=== PATIENT | male | born 1975 | race Caucasian/White ===

== ENCOUNTER → 2022-01-13 00:15 | Outpatient (CLI) | payer MEDICAID, SELFPAY ==
--- NOTE | 2022-01-13 | DI.US_ITS ---
Exam(s) US ABDOMEN EXAM: US ABDOMEN CLINICAL HISTORY: ELEVATED LIVER ENZYMES, R74.8, ELEVATED IRON, ? HEMOCHROMATOSIS TECHNIQUE: Ultrasound abdomen performed using standard protocol. COMPARISON: No exams were available for comparison FINDINGS: LIVER: Normal size and echogenicity. No focal liver lesions are seen.. GALLBLADDER: No evidence of cholelithiasis. No evidence of wall thickening. No pericholecystic fluid identified. ACUÑA'S SIGN: Negative. BILIARY SYSTEM: No intrahepatic or extrahepatic biliary ductal dilation. KIDNEYS: Kidneys are symmetric in size. No evidence of renal calculi. No evidence of hydronephrosis. No renal mass or cyst identified. PANCREAS: Not well visualized. SPLEEN: Not enlarged. ABDOMINAL AORTA AND IVC: Visualized portions normal caliber. ASCITES: None seen. IMPRESSION: Normal sonographic appearance of the upper abdomen. DATA REPOSITORY:
--- NOTE | 2022-01-13 | DI.RAD_ITS ---
Exam(s) XR CHEST 2V PA LATERAL EXAM: XR CHEST 2V PA LATERAL CLINICAL HISTORY: BRONCHOSPASM, J98.01, COUGH, R05, FATIGUE, R53.83 TECHNIQUE: 2D digital imaging was performed. COMPARISON: No exams were available for comparison FINDINGS: MEDIASTINUM: Normal. HEART: Normal. PULMONARY VASCULATURE: Normal. LUNGS: Clear. PLEURAL SPACE: No pleural effusion or pneumothorax. BONE:Unremarkable for age. IMPRESSION: No acute abnormality. DATA REPOSITORY: RADIATION DOSE DELIVERED:
== END ==
PROVIDERS: PCP Internal Medicine; Visit Provider Nurse Practitioner Family
DX: R05.8 Other specified cough (principal); R53.83 Other fatigue; J98.01 Acute bronchospasm; R74.8 Abnormal levels of other serum enzymes
CPT/HCPCS: 71046; 76700

== ENCOUNTER 2024-10-12 14:07 | Outpatient (CLI) | payer MEDICAID, SELFPAY ==
[2024-10-12 14:14] LABS: Abs Immature Grans 0.01 10^3/uL (0.0-0.06); Absolute Basophil Count 0.03 10^3/uL (0.0-0.2); Absolute Eosinophil Count 0.02 10^3/uL (0.0-0.7); Absolute Lymphocyte Count 1.17 10^3/uL (1.2-3.4); Absolute Monocyte Count 0.45 10^3/uL (0.1-0.8); Absolute Neutrophil Count 3.03 10^3/uL (1.2-6.7); Basophils % 0.6 %; Eosinophils % 0.4 %; HCT 46.6 % (40.0-50.0); HGB 15.9 g/dL (13.5-17.5); Immature Grans % 0.2 %; Lymphocytes % 24.8 %; MCH 30.2 pg (27.0-33.0); MCHC 34.1 % (32.0-36.0); MCV 88 fL (80-95); MPV 10.1 fL (8.0-11.0); Monocytes % 9.6 %; Neutrophils % 64.4 %; Platelet Count 151 10^3/uL (130-400); RBC 5.27 10^6/uL (4.36-5.78); RDW 12.8 % (11.8-14.1); RDW-SD 41.3 fL; WBC 4.71 10^3/uL (4.4-10.8)
--- OUTSIDE RECORDS SUMMARY | 2024-10-12 14:15 | XMS_ITS | Referral Summary ---
Author Organization [facility] Address [address] [place] [address] Care Team Providers Care Transverse Abdominal Muscle Nurse Name Role Phone Tex Crowder MD Primary Care Provider + Social History Tobacco Use Types Packs/Day Years Used Date Smoking Tobacco: Never Assessed Sex and Gender Information Value Date Recorded Sex Assigned at Not on file Legal Sex Male 18:28 EST Gender Identity Not on file Sexual Orientation Not on file Plan of Treatment Not on file Procedures Procedure Name Priority Date/Time Associated Diagnosis Comments HEPATITIS C AB W REFLEX TO HCV RNA BY PCR Routine 05/07/2022 6:32 EDT Nonspecific abnormal serum enzyme levels from Last 3 Months or Most Recently Relevant to Health Maintenance Results * HEPATITIS C AB W REFLEX TO HCV RNA BY PCR (05/07/2022 6:32 EDT) Hep C Antibody Negative Negative 05/07/2022 14:33 EDT [facility] Blood VENOUS BLOOD / Unknown Venipuncture / Unknown 05/07/2022 6:32 EDT 05/07/2022 13:06 EDT us Ale Bazan NP CHEMISTRY & BLOOD GAS ORDERABLES Final Result [facility] [address] [place] [address] from Last 3 Months or Most Recently Relevant to Health Maintenance Insurance MEDICAID [place] Care Teams Transverse Abdominal Muscle Nurse Relationship Specialty Start Date End Date Tex Crowder MD [address] [place] [phone] PCP - General 07/16/15
--- OUTSIDE RECORDS SUMMARY | 2024-10-12 14:15 | XMS_ITS | Encounter Summary ---
Author Organization [facility] Address [address] [place] [address] Care Team Providers Care Conservation Worker Name Role Phone Tex Crowder MD Primary Care Provider + Encounter Details Date Type Department Care Team (Late st Contact Info) Description 12/14/2021 Results Only [facility] Laboratory Services - [facility] [address] [place] [address] Ale Bazan, DYLAN [address] [place] [address] Social History Tobacco Use Types Packs/Day Years Used Date Smoking Tobacco: Never Assessed Sex and Gender Information Value Date Recorded Sex Assigned at Not on file Legal Sex Male 18:28 EST Gender Identity Not on file Sexual Orientation Not on file documented as of this encounter Plan of Treatment Not on file documented as of this encounter Procedures Procedure Name Priority Date/Time Associated Diagnosis Comments TSH Routine 12/14/2021 6:26 EDT documented in this encounter Results * TSH (12/14/2021 6:26 EDT) TSH 1.15 0.45 - 5.33 uIU/mL [facility] 12/14/2021 6:26 EDT us Ale Bazan NP CHEMISTRY & BLOOD GAS ORDERABLES Final Result [facility] [address] [place] [address] documented in this encounter Visit Diagnoses Not on filedocumented in this encounter Care Teams Conservation Worker Relationship Specialty Start Date End Date Tex Crowder MD [address] [place] [phone] PCP - General 07/16/15 documented as of this encounter
--- OUTSIDE RECORDS SUMMARY | 2024-10-12 14:15 | XMS_ITS | Clinical Summary ---
Author Organization [facility] Address [address] [place] [address] Care Team Providers Care Strapper Name Role Phone Tex Crowder MD Primary Care Provider + Social History Tobacco Use Types Packs/Day Years Used Date Smoking Tobacco: Never Assessed Sex and Gender Information Value Date Recorded Sex Assigned at Not on file Legal Sex Male 18:28 EST Gender Identity Not on file Sexual Orientation Not on file Plan of Treatment Health Maintenance Due Date Last Done Comments Hepatitis B Vaccine (1 of 3 - 19+ 3-dose series) 06/17 COVID-19 Vaccine ( season) 2024 Hepatitis C Screen Completed 05/07/2022 Procedures Procedure Name Priority Date/Time Associated Diagnosis Comments HEPATITIS C AB W REFLEX TO HCV RNA BY PCR Routine 05/07/2022 6:32 EDT Nonspecific abnormal serum enzyme levels from Last 3 Months or Most Recently Relevant to Health Maintenance Results * HEPATITIS C AB W REFLEX TO HCV RNA BY PCR (05/07/2022 6:32 EDT) Hep C Antibody Negative Negative 05/07/2022 14:33 EDT [facility] Blood VENOUS BLOOD / Unknown Venipuncture / Unknown 05/07/2022 6:32 EDT 05/07/2022 13:06 EDT us Ale Bazan NP CHEMISTRY & BLOOD GAS ORDERABLES Final Result [facility] [address] [place] [address] from Last 3 Months or Most Recently Relevant to Health Maintenance Insurance MEDICAID [place] Care Teams Strapper Relationship Specialty Start Date End Date Tex Crowder MD [address] [place] [phone] PCP - General 07/16/15
--- OUTSIDE RECORDS SUMMARY | 2024-10-12 14:15 | XMS_ITS | Encounter Summary ---
Author Organization [facility] Address [address] [place] [address] Care Team Providers Care Rib Sawyer Name Role Phone Txe Crowder MD Primary Care Provider + Encounter Details Date Type Department Care Team (Late st Contact Info) Description 04/18/2024 Results Only [facility] Laboratory Services - [facility] [address] [place] [address] Ale Bazan, INTELLIGENCE RESEARCH SPECIALIST [address] [place], [place] [address] Social History Tobacco Use Types Packs/Day Years [...] Procedure Name Priority Date/Time Associated Diagnosis Comments COMPLETE BLOOD COUNT WITH DIFFERENTIAL (AUTO) Routine 04/18/2024 14:27 EDT documented in this encounter Results * (ABNORMAL) COMPLETE BLOOD COUNT WITH DIFFERENTIAL (AUTO) (04/18/2024 14:27 EDT) WBC 3.5(L) 4.0 - 10.4 x10e3/uL [facility] Lymphocytes 26.3 % [facility] Monocytes 10.6 % [facility] Lymph # 0.92(L) 1.09 - 3.30 x10e3/uL [facility] Platte # 0.37 0.10 - 0.80 x10e3/uL [facility] RBC 5.91(H) 4.36 - 5.78 x10e6/uL [facility] HGB 16.3 13.8 - 17.3 g/dL [facility] HCT 50.3(H) 39.5 - 50.2 % [facility] MCV 85.1 81.0 - 95.[address] [facility] MCH 27.6 27.6 - 33.[address] [facility] MCHC 32.4(L) 32.8 - 36.4 g/dL [facility] RDW 15.5(H) <14.2 % [facility] PLT 216 141 - 377 x10e3/uL [facility] MPV 11.4 9.5 - 12.[address] [facility] Absolute Neutrophil 2.14(L) 2.20 - 8.85 x10e3/uL [facility] Neutrophils 61.1 % [facility] Eosinophils 0.6 % [facility] Eosinophils Absolute 0.02(L) 0.03 - 0.61 x10e3/uL [facility] Basophils 1.1 % [facility] Basophils Absolute 0.04 0.01 - 0.11 x10e3/uL [facility] Immature Granulocytes 0.3 % [facility] Immature Granulocytes Absolute 0.01 0.00 - 0.06 x10e3/uL [facility] RDW-SD 47.8(H) <46.[address] [facility] 04/18/2024 14:2 7 EDT us Ale Bazan INTELLIGENCE RESEARCH SPECIALIST HEMATOLOGY & PF4 ORDERABLES Aleida carney Result [facility] [address] [place] [address] documented in this encounter Visit Diagnoses Not on filedocumented in this encounter Care Teams Rib Sawyer Relationship Specialty Start Date End Date Tex Crowder MD [address] [place] [phone] PCP - General 07/16/15 documented as of this encounter
--- OUTSIDE RECORDS SUMMARY | 2024-10-12 14:15 | XMS_ITS | Encounter Summary ---
Author Organization [facility] Address [address] [place] [address] Care Team Providers Care Manager Multicultural Name Role Phone Tex Crowder MD Primary Care Provider + Encounter Details Date Type Department Care Team (Latest Contact Info) Description 04/18/2024 Community Orders [facility] [address] [place] [address] Ale Bazan NP [address] [place] [address] Polycythemia, secondary (Primary Dx); Hyperlipidemia, unspecified hyperlipidemia type; Reduced libido; Special screening, prostate cancer; Vitamin D deficiency disease Social History Tobacco Use Types Packs/Day Years Used Date Smoking Tobacco: Never Assessed Sex and Gender Information Value Date Recorded Sex Assigned at Not on file Legal Sex Male 18:28 EST Gender Identity Not on file Sexual Orientation Not on file documented as of this encounter Plan of Treatment Not on file documented as of this encounter Results * (ABNORMAL) VITAMIN D (25,OH) (04/18/2024 8:50 EDT) 25OH Vitamin D Tot 27(L) 30 - 100 ng/mL 04/18/2024 13:52 EDT [facility] Blood VENOUS BLOOD / Unknown Venipuncture / Unknown 04/18/2024 8:50 EDT 04/18/2024 13:06 EDT Ale Bazan NP CHEMISTRY & BLOOD GAS ORDERABLES Final Result [facility] [address] [place] [address] * PSA SCREEN (04/18/2024 8:50 EDT) PSA 0.908 <=2.500 ng/mL 04/18/2024 14:06 EDT [facility] Blood VENOUS BLOOD / Unknown Venipuncture / Unknown 04/18/2024 8:50 EDT 04/18/2024 13:06 EDT Narrative [facility] - 04/18/2024 14:06 EDT NOTE: Serum PSA concentration should not be interpreted as absolute evidence for the presence or absence of malignant disease. Assayed on [employer] using chemiluminescent technology.??Values obtained by using different assay methods cannot be used interchangeably. ?? Ale Bazan NP CHEMISTRY & BLOOD GAS ORDERABLES Final Result Performing Organization Address [facility] de Phone Number [facility] [address] [place] [address] * (ABNORMAL) TESTOSTERONE, TOTAL AND FREE (04/18/2024 8:50 EDT) Testosterone 194(L) 229 - 902 ng/dL 04/18/2024 20:30 EDT [facility] Comment:The results of this assay can be falsely elevated due to the consumption of Biotin. Sex Hormone Bnd Glob 9.4(L) 11.5 - 54.5 nmol/L 04/18/2024 20:30 EDT [facility] Comment:The results of this assay can be falsely lowered due to the consumption of Biotin. Free Testosterone 6.3 4.0 - 14.5 ng/dL 04/18/2024 20:30 EDT [facility] Blood VENOUS BLOOD / Unknown Venipuncture / Unknown 04/18/2024 8:50 EDT 04/18/2024 13:06 EDT Narrative [facility] - 04/18/2024 20:30 EDT This test is not recommended in patients with plasma protein abnormalities. us Ale Bazan NP CHEMISTRY & BLOOD GAS ORDERABLES Final Result [facility] [address] [place], [place] [id number] * (ABNORMAL) LIPID PROFILE (INCLUDES CHOLESTEROL, TRIGLYCERIDES, HDL, LDL) (04/18/2024 8:50 EDT) Cholesterol 216(H) <200 mg/dL 04/18/2024 13:31 [facility] Comment:Note that therapeuti c goals will differ between patients based on cardiac risk factors and current medical therapy. HDL 33(L) >=40 mg/dl 04/18/2024 13:31 [facility] Comment:Note that therapeuti c goals will differ between patients based on cardiac risk factors and current medical therapy. LDL, Calculated 160(H) <160 mg/dL 13:31 [facility] Comment:Note that therapeuti c goals will differ between patients based on cardiac risk factors and current medical therapy. Triglyceride 113 <=150 mg/dL 04/18/2024 13:31 [facility] Comment:Note that therapeuti c goals will differ between patients based on cardiac risk factors and current medical therapy. Chol/HDL Ratio 6.5 See Note 04/18/2024 13:31 [facility] Comment: NOTE: Desirable Ratio = <4.1 Patient At Risk Ratio = >5.0(Males) ?>6.0(Females) Non HDL Cholesterol 183(H) <160 mg/dL 04/18/2024 13:31 [facility] Comment:Note that therapeuti c goals will differ between patients based on cardiac risk factors and current medical therapy. Blood VENOUS BLOOD / Unknown Venipuncture / Unknown 04/18/2024 8:50 EDT 04/18/2024 13:06 EDT us Ale B Bazan LEATHER TOOLER CHEMISTRY & BLOOD GAS ORDERABLES Final Result [facility] [address] [place] [address] * (ABNORMAL) COMPREHENSIVE METABOLIC PANEL (CMP) (04/18/2024 8:50 EDT) Sodium 137 136 - 145 mmol/L 04/18/2024 13:31 [facility] Potassium 5.0 3.5 - 5.0 mmol/L 04/18/2024 13:31 [facility] Chloride 102 96 - 110 mmol/L 04/18/2024 13:31 [facility] CO2 Total 25 22 - 32 mmol/L 04/18/2024 13:31 [facility] Glucose 86 70 - 99 mg/dl 04/18/2024 13:31 [facility] BUN 14 10 - 26 mg/dL 04/18/2024 13:31 [facility] Creatinine 1.02 0.66 - 1.25 mg/dL 04/18/2024 13:31 [facility] eGFR 91 >60 mL/min/1.7 3m2 04/18/2024 13:31 [facility] Total Protein 7.3 6.3 - 8.2 g/dL 04/18/2024 13:31 [facility] Albumin 4.5 3.4 - 4.9 g/dL 04/18/2024 13:31 [facility] Alkaline Phosphatase 39 38 - 126 U/L 04/18/2024 13:31 [facility] AST 90(H) 15 - 46 U/L 04/18/2024 13:31 [facility] ALT 113(H) <50 U/L 04/18/2024 13:31 [facility] Bilirubin, Total 1.1 <1.4 mg/dL 04/18/20 13:31 [facility] Calcium 9.0 8.5 - 10.5 mg/dL 04/18/2024 13:31 EDT [facility] Albumin/Globulin Ratio 1.6 1.0 - 2.5 04/18/2024 13:31 EDT [facility] Anion Gap 10 5 - 14 mmol/L 04/18/2024 13:31 EDT [facility] Blood VENOUS BLOOD / Unknown Venipuncture / Unknown 04/18/2024 8:50 EDT 04/18/2024 13:06 EDT us Ale Bazan LEATHER TOOLER CHEMISTRY & BLOOD GAS ORDERABLES Final Result Performing Organization Address [facility]/ZIP Co de Phone Number [facility] [address] [place] [address] * (ABNORMAL) IBC (04/18/2024 8:50 EDT) Iron Binding Capacity 488(H) 240 - 450 ??g/dL 04/18/2024 13:40 EDT [facility] Blood VENOUS BLOOD / Unknown Venipuncture / Unknown 04/18/2024 8:50 EDT 04/18/2024 13:06 EDT us Ale Bazan LEATHER TOOLER CHEMISTRY & BLOOD GAS ORDERABLES Final Result Performing Organization Address [facility] Co de Phone Number [facility] [address] [place] [address] * (ABNORMAL) FERRITIN (04/18/2024 8:50 EDT) Ferritin 10(L) 18 - 464 ng/mL 04/18/2024 14:10 EDT [facility] Blood VENOUS BLOOD / Unknown Venipuncture / Unknown 04/18/2024 8:50 EDT 04/18/2024 13:06 EDT Narrative [facility] - 04/18/2024 14:10 EDT The results of this assay can be falsely lowered due to the consumption of Biotin. us Ale Bazan LEATHER TOOLER CHEMISTRY & BLOOD GAS ORDERABLES Final Result Performing Organization Address [facility]/ZIP Co de Phone Number [facility] [address] [place], [place] [id number] * IRON (04/18/2024 8:50 EDT) Iron 86 49 - 181 ??g/dL 04/18/2024 13:31 EDT [facility] Blood VENOUS BLOOD / Unknown Venipuncture / Unknown 04/18/2024 8:50 EDT 04/18/2024 13:06 EDT us Ale Bazan LEATHER TOOLER CHEMISTRY & BLOOD GAS ORDERABLES Final Result Performing Organization Address [facility] Co de Phone Number [facility] [address] [place] [phone] documented in this encounter Visit Diagnoses Diagnosis Polycythemia, secondary- Primary Hyperlipidemia, unspecified hyperlipidemia type Reduced libido Decreased libido Special screening, prostate cancer Special screening for malignant neoplasm of prostate Vitamin D deficiency disease Unspecified vitamin D deficiency documented in this encounter Care Teams Manager Multicultural Relationship Specialty Start Date End Date Tex Crowder MD [address] [place] [phone] PCP - General 07/16/15 documented as of this encounter
--- OUTSIDE RECORDS SUMMARY | 2024-10-12 14:15 | XMS_ITS | Encounter Summary ---
Author Organization [facility] Address [address] [place] [address] Care Team Providers Care Scrum Project Manager Name Role Phone Tex Crowder MD Primary Care Provider + Encounter Details Date Type Department Care Team (Latest Contact Info) Description 12/14/2021 [facility] [address] [place] [address] Ale Bazan, MEDICAL TRANSCRIPTIONIST [address] [place] [address] High transaminase levels (Primary Dx) Social History Tobacco Use Types Packs/Day Years [...] Name Priority Date/Time Associated Diagnosis Comments HEPATITIS B CORE ANTIBODY (TOTAL) Routine 12/11/2021 13:38 EDT High transaminase levels T3 FREE Routine 12/11/2021 13:38 EDT High transaminase levels T4 FREE Routine 12/11/2021 13:38 EDT High transaminase levels HEPATITIS A ANTIBODY IGM Routine 12/11/2021 High transaminase levels HEPATITIS B SURFACE ANTIBODY Routine 12/11/2021 High transaminase levels HEPATITIS B SURFACE ANTIGEN Routine 12/11/2021 High transaminase levels documented in this encounter Results * T4 FREE (12/11/2021 13:38 EDT) Pathologist [facility] T4, Free 1.4 0.8 - 2.2 ng/dL 12/14/2021 9:28 EDT [facility] Blood VENOUS BLOOD / Unknown Venipuncture / Unknown 12/11/2021 13:38 EDT 12/14/2021 9:03 EDT us Ale Bazan MEDICAL TRANSCRIPTIONIST CHEMISTRY & BLOOD GAS ORDERABLES Final Result [facility] [address] [place] [id number] * T3 FREE (12/11/2021 13:38 EDT) Pathologist [facility] T3, Free 4.4 2.8 - 5.3 pg/mL 12/14/2021 20:58 EDT [facility] Blood VENOUS BLOOD / Unknown Venipuncture / Unknown 12/11/2021 13:38 EDT 12/14/2021 6:32 EDT us Ale Bazan MEDICAL TRANSCRIPTIONIST CHEMISTRY & BLOOD GAS ORDERABLES Final Result [facility] [address] [place] [phone] * HEPATITIS B CORE ANTIBODY (TOTAL) (12/11/2021 13:38 EDT) [facility] Hepatitis B Core Ab, Total Negative Negative 12/15/2021 10:24 EDT [facility] Blood VENOUS BLOOD / Unknown Venipuncture / Unknown 12/11/2021 13:38 EDT 12/14/2021 6:32 EDT us Ale Bazan MEDICAL TRANSCRIPTIONIST CHEMISTRY & BLOOD GAS ORDERABLES Final Result [facility] [address] [place] [address] * HEPATITIS B SURFACE ANTIGEN (12/11/2021) [facility] Hep B Surface Ag Negative Negative 12/15/19 8:58 EDT [facility] Comment: Expected values: Negative The results of this assay can be falsely lowered due to the consumption of Biotin. Blood VENOUS BLOOD / Unknown Venipuncture / Unknown 12/11/2021 12/14/2021 6:32 EDT Ale Bazan MEDICAL TRANSCRIPTIONIST CHEMISTRY & BLOOD GAS ORDERABLES Final Result Performing Organization Address [facility] Co de Phone Number [facility] [address] [place] [address] * HEPATITIS B SURFACE ANTIBODY (12/11/2021) [facility] Hep B Surface Ab, Quantitative 31.9 See Note mIU/mL 12/14/2021 8:58 EDT [facility] Comment: Clinical Interpretation of Immune Status: Anti-HBs detected at >10 mIU/mL. Patient is considered to be immune to infection with HBV. It has not been determined what the clinical significance is for values greater than or = 12 mIU/mL, other than the individual is considered to be immune to HBV infection. The results of this assay can be falsely lowered due to the consumption of Biotin. Reference Range for Hep B Surface Ab, Quant: Positive: ?>= 12.00 mIU/mL Negative: ?< 5.00 mIU/mL Indeterminate: ??>= 5.00 mIU/mL and < 12.00 mIU/mL Blood VENOUS BLOOD / Unknown Venipuncture / Unknown 12/11/2021 12/14/2021 6:32 EDT us Ale Bazan MEDICAL TRANSCRIPTIONIST CHEMISTRY & BLOOD GAS ORDERABLES Final Result Performing Organization Address [facility] de Phone Number [facility] [address] [place] [address] * HEPATITIS A ANTIBODY IGM (12/11/2021) [facility] Hepatitis A Antibody, IgM Negative Negative 12/14/2021 9:56 EDT [facility] Blood VENOUS BLOOD / Unknown Venipuncture / Unknown 12/11/2021 12/14/2021 6:32 EDT us Ale Bazan MEDICAL TRANSCRIPTIONIST CHEMISTRY & BLOOD GAS ORDERABLES Final Result [facility] [address] [place] [address] documented in this encounter Visit Diagnoses Diagnosis High transaminase levels- Primary documented in this encounter Care Teams Scrum Project Manager Relationship Specialty Start Date End Date Tex Crowder MD [address] [place] [phone] PCP - General 07/16/15 documented as of this encounter
--- OUTSIDE RECORDS SUMMARY | 2024-10-12 14:15 | XMS_ITS | Encounter Summary ---
Author Organization [facility] Address [address] [place] [address] Care Team Providers Care Fire Official Name Role Phone Tex Crowder MD Primary Care Provider + Encounter Details Date Type Department Care Team (Late st Contact Info) Description 12/17/2022 Results Only [facility] - [facility] [address] [place] [address] Ale Bazan, DYLAN [address] [place] [address] Social History Tobacco Use Types [...] Procedure Name Priority Date/Time Associated Diagnosis Comments GROUP A STREP BY PCR Routine 12/17/2022 10:00 EDT documented in this encounter Results * GROUP A STREP BY PCR (12/17/2022 10:00 EDT) Group A Strep PCR NOT DETECTED NOT DETECTED [facility] 12/17/2022 10:0 0 EDT us Ale Bazan NP MICROBIOLOGY - GENERAL ORDERABLE S Final Result [facility] [address] [place] [address] documented in this encounter Visit Diagnoses Not on filedocumented in this encounter Care Teams Fire Official Relationship Specialty Start Date End Date Tex Crowder MD [address] [place] [phone] PCP - General 07/16/15 documented as of this encounter
--- OUTSIDE RECORDS SUMMARY | 2024-10-12 14:15 | XMS_ITS | Encounter Summary ---
Author Organization [facility] Address [address] [place] [address] Care Team Providers Care Photographic Reproduction Technician Name Role Phone Tex Crowder MD Primary Care Provider + Encounter Details Date Type Department Care Team (Latest Contact Info) Description 05/07/2022 [facility] [address] [place] [address] Ale Bazan, SHOT PACKER [address] [place] [address] Gastroesophageal reflux disease with esophagitis, unspecified whether hemorrhage (Primary Dx); Nonspecific abnormal serum enzyme levels; Hyperlipidemia, unspecified hyperlipidemia type Social History Tobacco Use Types Packs/Day Years [...] 6:32 EDT Nonspecific abnormal serum enzyme levels HEPATITIS A ANTIBODY IGM Routine 05/07/2022 6:32 EDT Nonspecific abnormal serum enzyme levels COMPLETE BLOOD COUNT AND DIFFERENTIAL Routine 05/07/2022 6:32 EDT Gastroesophageal reflux disease with esophagitis, unspecified whether hemorrhage IRON Routine 05/07/2022 6:32 EDT Nonspecific abnormal serum enzyme levels GGT Routine 05/07/2022 6:32 EDT Nonspecific abnormal serum enzyme levels LIPID PROFILE (INCLUDES CHOLESTEROL, TRIGLYCERIDES, HDL, LDL) Routine 05/07/2022 6:32 EDT Nonspecific abnormal serum enzyme levels Hyperlipidemia, unspecified hyperlipidemia type COMPREHENSIVE METABOLIC PANEL (CMP) Routine 05/07/2022 6:32 EDT Nonspecific abnormal serum enzyme levels documented in this encounter Results * (ABNORMAL) COMPREHENSIVE METABOLIC PANEL (CMP) (05/07/2022 6:32 EDT) Sodium 140 136 - 145 mmol/L 05/07/2022 13:41 [facility] Potassium 4.2 3.5 - 5.0 mmol/L 05/07/2022 13:41 [facility] Chloride 103 96 - 110 mmol/L 05/07/2022 13:41 [facility] CO2 Total 28 22 - 32 mmol/L 05/07/2022 13:41 [facility] Glucose 81 70 - 100 mg/dL 05/07/2022 13:41 [facility] BUN 17 10 - 26 mg/dL 05/07/2022 13:41 [facility] Creatinine 1.10 0.66 - 1.25 mg/dL 05/07/2022 13:41 [facility] eGFR 84 >60 mL/min/1.7 3m2 05/07/2022 13:41 [facility] Total Protein 6.7 6.3 - 8.2 g/dL 05/07/2022 13:41 [facility] Albumin 4.3 3.4 - 4.9 g/dL 05/07/2022 13:41 [facility] Alkaline Phosphatase 54 38 - 126 U/L 05/07/2022 13:41 [facility] AST 47(H) 15 - 46 U/L 05/07/2022 13:41 [facility] ALT 53(H) <50 U/L 05/07/2022 13:41 EDT [facility] Bilirubin, Total 1.4(H) <1.4 mg/dL 05/07/20 13:41 EDT [facility] Calcium 8.8 8.5 - 10.5 mg/dL 05/07/2022 13:41 EDT [facility] Albumin/Globulin Ratio 1.8 1.0 - 2.5 05/07/2022 13:41 EDT [facility] Anion Gap 9 5 - 14 05/07/2022 13:41 EDT [facility] Blood VENOUS BLOOD / Unknown Venipuncture / Unknown 05/07/2022 6:32 EDT 05/07/2022 13:06 EDT us Ale Bazan SHOT PACKER CHEMISTRY & BLOOD GAS ORDERABLES Final Result Performing Organization Address [facility] Co de Phone Number [facility] [address] [place] [address] * HEPATITIS A ANTIBODY IGM (05/07/2022 6:32 EDT) Hepatitis A Antibody, IgM Negative Negative 05/07/2022 14:33 EDT [facility] Blood VENOUS BLOOD / Unknown Venipuncture / Unknown 05/07/2022 6:32 EDT 05/07/2022 13:06 EDT us Ale Bazan SHOT PACKER CHEMISTRY & BLOOD GAS ORDERABLES Final Result Performing Organization Address City/[facility]/ZIP Co de Phone Number [facility] [address] [place] [address] * GGT (05/07/2022 6:32 EDT) GGT 32 15 - 73 U/L 05/07/2022 13:41 EDT [facility] Blood VENOUS BLOOD / Unknown Venipuncture / Unknown 05/07/2022 6:32 EDT 05/07/2022 13:06 EDT us Ale Bazan SHOT PACKER CHEMISTRY & BLOOD GAS ORDERABLES Final Result Performing Organization Address City/[facility]/ZIP Co de Phone Number [facility] [address] [place] [address] * HEPATITIS C AB W REFLEX TO HCV RNA BY PCR (05/07/2022 6:32 EDT) Pathologist [facility] Hep C Antibody Negative Negative 05/07/2022 14:33 EDT [facility] Blood VENOUS BLOOD / Unknown Venipuncture / Unknown 05/07/2022 6:32 EDT 05/07/2022 13:06 EDT us Ale Bazan SHOT PACKER CHEMISTRY & BLOOD GAS ORDERABLES Final Result Performing Organization Address [facility] Co de Phone Number [facility] [address] [place] [address] * (ABNORMAL) LIPID PROFILE (INCLUDES CHOLESTEROL, TRIGLYCERIDES, HDL, LDL) (05/07/2022 6:32 EDT) Pathologist [facility] Cholesterol 235(H) <200 mg/dL 05/07/2022 13:41 [facility] Comment:Note that therapeuti c goals will differ between patients based on cardiac risk factors and current medical therapy. HDL 40 >=40 mg/dL 05/07/2022 13:41 [facility] Comment:Note that therapeuti c goals will differ between patients based on cardiac risk factors and current medical therapy. LDL, Calculated 169(H) <160 mg/dL 13:41 [facility] Comment:Note that therapeuti c goals will differ between patients based on cardiac risk factors and current medical therapy. Triglyceride 129 <=150 mg/dL 05/07/2022 13:41 [facility] Comment:Note that therapeuti c goals will differ between patients based on cardiac risk factors and current medical therapy. Chol/HDL Ratio 5.9 See Note 05/07/2022 13:41 [facility] Comment: NOTE: Desirable Ratio = <4.1 Patient At Risk Ratio = >5.0(Males) ?>6.0(Females) Non HDL Cholesterol 195(H) <160 mg/dL 05/07/2022 13:41 EDT [facility] Comment:Note that therapeuti c goals will differ between patients based on cardiac risk factors and current medical therapy. Blood VENOUS BLOOD / Unknown Venipuncture / Unknown 05/07/2022 6:32 EDT 05/07/2022 13:06 EDT us Ale Bazan SHOT PACKER CHEMISTRY & BLOOD GAS ORDERABLES Final Result Performing Organization Address [facility] Co de Phone Number [facility] [address] [place] [address] * (ABNORMAL) IRON (05/07/2022 6:32 EDT) Pathologist [facility] Iron 276(H) 49 - 181 ??g/dL 05/07/2022 13:41 EDT [facility] Blood VENOUS BLOOD / Unknown Venipuncture / Unknown 05/07/2022 6:32 EDT 05/07/2022 13:06 EDT us Ale Bazan SHOT PACKER CHEMISTRY & BLOOD GAS ORDERABLES Final Result Performing Organization Address [facility] de Phone Number [facility] [address] [place] [address] * (ABNORMAL) COMPLETE BLOOD COUNT AND DIFFERENTIAL (05/07/2022 6:32 EDT) Pathologist [facility] WBC 3.66(L) 4.00 - 10.40 K/cmm 05/07/2022 13:32 EDT [facility] RBC 5.35 4.36 - 5.78 M/cmm 05/07/2022 13:32 [facility] Hemoglobin 16.4 13.8 - 17.3 gm/dL 05/07/2022 13:32 [facility] HCT 48.8 39.5 - 50.2 % 05/07/2022 13:32 [facility] MCV 91 81 - 95 fl 05/07/2022 13:32 [facility] MCH 30.7 27.6 - 33.0 pg 05/07/2022 13:32 [facility] MCHC 33.6 32.8 - 36.4 gm/dL 05/07/2022 13:32 [facility] RDW-CV 12.8 <14.2 % 05/07/2022 13:32 [facility] RDW-SD 42.1 <46.0 fl 05/07/2022 13:32 [facility] PLT 178 141 - 377 K/cmm 05/07/2022 13:32 [facility] MPV 11.2 9.5 - 12.7 fl 05/07/2022 13:32 [facility] % Neutrophils 53.3 % 05/07/2022 13:32 [facility] % Lymphocytes 31.7 % 05/07/2022 13:32 [facility] % Monocytes 13.4 % 05/07/2022 13:32 [facility] % Eosinophils 0.8 % 05/07/2022 13:32 [facility] % Basophils 0.8 % 05/07/2022 13:32 [facility] % Immature Grans 0.0 % 05/07/20 13:32 [facility] Absolute Neutrophils 1.95(L) 2.20 - 8.85 K/cmm 05/07/2022 13:32 [facility] Absolute Lymphocytes 1.16 1.09 - 3.30 K/cmm 05/07/2022 13:32 [facility] Absolute Monocytes 0.49 0.10 - 0.80 K/cmm 05/07/2022 13:32 [facility] Absolute Eosinophils 0.03 0.03 - 0.61 K/cmm 05/07/2022 13:32 [facility] ABS Basophils 0.03 0.01 - 0.11 K/cmm 05/07/2022 13:32 [facility] Absolute Immature Grans 0.00 0.00 - 0.06 K/cmm 05/07/2022 13:32 EDT [facility] Type of Differential: Auto 05/07/2022 13:32 EDT [facility] Blood VENOUS BLOOD / Unknown Venipuncture / Unknown 05/07/2022 6:32 EDT 05/07/2022 13:06 EDT us Ale Bazan SHOT PACKER PACKAGES & DNA PROBE ORDERABLES Final Result [facility] [address] [place] [address] documented in this encounter Visit Diagnoses Diagnosis Gastroesophageal reflux disease with esophagitis, unspecified whether hemorrhage- Primary Nonspecific abnormal serum enzyme levels Other nonspecific abnormal serum enzyme levels Hyperlipidemia, unspecified hyperlipidemia type documented in this encounter Care Teams Photographic Reproduction Technician Relationship Specialty Start Date End Date Tex Crowder MD [address] [place] [phone] PCP - General 07/16/15 documented as of this encounter
--- OUTSIDE RECORDS SUMMARY | 2024-10-12 14:15 | XMS_ITS | Encounter Summary ---
Author Organization [facility] Address [address] [place] [address] Care Team Providers Care Signaling Project Engineer Name Role Phone Tex Crowder MD Primary Care Provider + Encounter Details Date Type Department Care Team (Latest Contact Info) Description 05/07/2022 13:05 EDT - 05/07/2022 23:59 EDT Hospital Encounter [facility] [place] [address] [address] [place], [facility] Discharge Disposition: Home or Self Care Social History Tobacco Use Types Packs/Day Years Used Date Smoking Tobacco: Never Assessed Sex and Gender Information Value Date Recorded Sex Assigned at Not on file Legal Sex Male 18:28 EST Gender Identity Not on file Sexual Orientation Not on file documented as of this encounter Discharge Disposition Disposition Code Departure Means Destination Home or Self Care documented in this encounter Plan of Treatment Not on file documented as of this encounter Visit Diagnoses Not on filedocumented in this encounter Care Teams Signaling Project Engineer Relationship Specialty Start Date End Date Tex Crowder MD [address] [place] [address] [phone] PCP - General 07/16/15 documented as of this encounter
--- OUTSIDE RECORDS SUMMARY | 2024-10-12 14:15 | XMS_ITS | Encounter Summary ---
Author Organization [facility] Address [address] [place] [address] Care Team Providers Care Talent Consultant Name Role Phone Tex Crowder MD Primary Care Provider + Encounter Details Date Type Department Care Team (Latest Contact Info) Description 04/18/2024 13:05 EDT - 04/18/2024 23:59 EDT Hospital Encounter [facility] - Main [address] [address] Her[address] Grower, [facility] Discharge Disposition: Home or Self Care [...] on filedocumented in this encounter Care Teams Talent Consultant Relationship Specialty Start Date End Date Tex Crowder MD [address] [place] [address] [phone] PCP - General 07/16/15 documented as of this encounter
--- OUTSIDE RECORDS SUMMARY | 2024-10-12 14:15 | XMS_ITS | Encounter Summary ---
Author Organization [facility] Address [address] [place] [address] Care Team Providers Care Park Superintendent Name Role Phone Tex Crowder MD Primary Care Provider + Encounter Details Date Type Department Care Team (Late st Contact Info) Description 04/18/2024 Orders Only [facility] [address] [place] [address] Ale Bazan, SWINGING CUT OFF SAW OPERATOR [address] [place] [address] Vitamin D deficiency disease; Special screening, prostate cancer; Reduced libido; Hyperlipidemia, unspecified hyperlipidemia type; Polycythemia, secondary Social History Tobacco Use Types Packs/Day Years [...] Procedure Name Priority Date/Time Associated Diagnosis Comments VITAMIN D (25,OH) Routine 04/18/2024 8: 50 EDT Vitamin D deficiency disease IBC Routine 04/18/2024 8:50 EDT Polycythemia, secondary TESTOSTERONE, TOTAL AND FREE Routine 04/18/2024 8:50 EDT Reduced libido PSA SCREEN Routine 04/18/2024 8:50 EDT Special screening, prostate cancer IRON Routine 04/18/2024 8:50 EDT Polycythemia, secondary FERRITIN Routine 04/18/2024 8:50 EDT Polycythemia, secondary LIPID PROFILE (INCLUDES CHOLESTEROL, TRIGLYCERIDES, HDL, LDL) Routine 04/18/2024 8:50 EDT Hyperlipidemia, unspecified hyperlipidemia type COMPREHENSIVE METABOLIC PANEL (CMP) Routine 04/18/2024 8:50 EDT Hyperlipidemia, unspecified hyperlipidemia type documented in this encounter Results * IRON (04/18/2024 8:50 EDT) Iron 86 49 - 181 ??g/dL 04/18/2024 13:31 EDT [facility] Blood VENOUS BLOOD / Unknown Venipuncture / Unknown 04/18/2024 8:50 EDT 04/18/2024 13:06 EDT us Ale Bazan SWINGING CUT OFF SAW OPERATOR CHEMISTRY & BLOOD GAS ORDERABLES Final Result [facility] [address] [place] [address] * (ABNORMAL) FERRITIN (04/18/2024 8:50 EDT) Ferritin 10(L) 18 - 464 ng/mL 04/18/2024 14:10 EDT [facility] Blood VENOUS BLOOD / Unknown Venipuncture / Unknown 04/18/2024 8:50 EDT 04/18/2024 13:06 EDT Narrative [facility] - 04/18/2024 14:10 EDT The results of this assay can be falsely lowered due to the consumption of Biotin. us Ale Bazan SWINGING CUT OFF SAW OPERATOR CHEMISTRY & BLOOD GAS ORDERABLES Final Result Performing Organization Address City/[facility]/ZIP Co de Phone Number [facility] [address] [place] [address] * (ABNORMAL) IBC (04/18/2024 8:50 EDT) Iron Binding Capacity 488(H) 240 - 450 ??g/dL 04/18/2024 13:40 [facility] Blood VENOUS BLOOD / Unknown Venipuncture / Unknown 04/18/2024 8:50 EDT 04/18/2024 13:06 EDT us Ale Bazan SWINGING CUT OFF SAW OPERATOR CHEMISTRY & BLOOD GAS ORDERABLES Final Result [facility] [address] [place] [address] * (ABNORMAL) COMPREHENSIVE METABOLIC PANEL (CMP) (04/18/2024 8:50 EDT) Sodium 137 136 - 145 mmol/L 04/18/2024 13:31 [facility] Potassium 5.0 3.5 - 5.0 mmol/L 04/18/2024 13:31 [facility] Chloride 102 96 - 110 mmol/L 04/18/2024 13:31 [facility] CO2 Total 25 22 - 32 mmol/L 04/18/2024 13:31 [facility] Glucose 86 70 - 99 mg/dl 04/18/2024 13:31 [facility] BUN 14 10 - 26 mg/dL 04/18/2024 13:31 [facility] Creatinine 1.02 0.66 - 1.25 mg/dL 04/18/2024 13:31 [facility] eGFR 91 >60 mL/min/1.7 3m2 04/18/2024 13:31 [facility] Total Protein 7.3 6.3 - 8.2 g/dL 04/18/2024 13:31 [facility] Albumin 4.5 3.4 - 4.9 g/dL 04/18/2024 13:31 [facility] Alkaline Phosphatase 39 38 - 126 U/L 04/18/2024 13:31 [facility] AST 90(H) 15 - 46 U/L 04/18/2024 13:31 [facility] ALT 113(H) <50 U/L 04/18/2024 13:31 [facility] Bilirubin, Total 1.1 <1.4 mg/dL 04/18/20 13:31 [facility] Calcium 9.0 8.5 - 10.5 mg/dL 04/18/2024 13:31 [facility] Albumin/Globulin Ratio 1.6 1.0 - 2.5 04/18/2024 13:31 [facility] Anion Gap 10 5 - 14 mmol/L 04/18/2024 13:31 [facility] Blood VENOUS BLOOD / Unknown Venipuncture / Unknown 04/18/2024 8:50 EDT 04/18/2024 13:06 EDT us Ale Bazan NP CHEMISTRY & BLOOD GAS ORDERABLES Final Result [facility] [address] [place] [address] * (ABNORMAL) LIPID PROFILE (INCLUDES CHOLESTEROL, TRIGLYCERIDES, HDL, LDL) (04/18/2024 8:50 EDT) Cholesterol 216(H) <200 mg/dL 04/18/2024 13:31 [facility] Comment:Note that therapeuti c goals will differ between patients based on cardiac risk factors and current medical therapy. HDL 33(L) >=40 mg/dl 04/18/2024 13:31 [facility] Comment:Note that therapeuti c goals will differ between patients based on cardiac risk factors and current medical therapy. LDL, Calculated 160(H) <160 mg/dL 13:31 [facility] Comment:Note that therapeuti c goals will differ between patients based on cardiac risk factors and current medical therapy. Triglyceride 113 <=150 mg/dL 04/18/2024 13:31 EDT [facility] Comment:Note that therapeuti c goals will differ between patients based on cardiac risk factors and current medical therapy. Chol/HDL Ratio 6.5 See Note 04/18/2024 13:31 EDT [facility] Comment: NOTE: Desirable Ratio = <4.1 Patient At Risk Ratio = >5.0(Males) ?>6.0(Females) Non HDL Cholesterol 183(H) <160 mg/dL 04/18/2024 13:31 T [facility] Comment:Note that therapeuti c goals will differ between patients based on cardiac risk factors and current medical therapy. Blood VENOUS BLOOD / Unknown Venipuncture / Unknown 04/18/2024 8:50 EDT 04/18/2024 13:06 EDT Ale Bazan SWINGING CUT OFF SAW OPERATOR CHEMISTRY & BLOOD GAS ORDERABLES Final Result [facility] [address] [place] [address] * (ABNORMAL) TESTOSTERONE, TOTAL AND FREE (04/18/2024 8:50 EDT) Pathologist [facility] Testosterone 194(L) 229 - 902 ng/dL 04/18/2024 20:30 EDT [facility] Comment:The results of this assay can be falsely elevated due to the consumption of Biotin. Sex Hormone Bnd Glob 9.4(L) 11.5 - 54.5 nmol/L 04/18/2024 20:30 T [facility] Comment:The results of this assay can be falsely lowered due to the consumption of Biotin. Free Testosterone 6.3 4.0 - 14.5 ng/dL 04/18/2024 20:30 T [facility] Blood VENOUS BLOOD / Unknown Venipuncture / Unknown 04/18/2024 8:50 EDT 04/18/2024 13:06 EDT Narrative [facility] - 04/18/2024 20:30 EDT This test is not recommended in patients with plasma protein abnormalities. us Ale Bazan SWINGING CUT OFF SAW OPERATOR CHEMISTRY & BLOOD GAS ORDERABLES Final Result Performing Organization Address City/[facility]/ZIP Co de Phone Number [facility] [address] [place] [address] * PSA SCREEN (04/18/2024 8:50 EDT) PSA 0.908 <=2.500 ng/mL 04/18/2024 14:06 EDT [facility] Blood VENOUS BLOOD / Unknown Venipuncture / Unknown 04/18/2024 8:50 EDT 04/18/2024 13:06 EDT Narrative [facility] - 04/18/2024 14:06 EDT NOTE: Serum PSA concentration should not be interpreted as absolute evidence for the presence or absence of malignant disease. Assayed on [email or web address] using chemiluminescent technology.??Values obtained by using different assay methods cannot be used interchangeably. ?? us Ale Bazan SWINGING CUT OFF SAW OPERATOR CHEMISTRY & BLOOD GAS ORDERABLES Final Result Performing Organization Address [facility] Co de Phone Number [facility] [address] [place] [address] * (ABNORMAL) VITAMIN D (25,OH) (04/18/2024 8:50 EDT) 25OH Vitamin D Tot 27(L) 30 - 100 ng/mL 04/18/2024 13:52 EDT [facility] Blood VENOUS BLOOD / Unknown Venipuncture / Unknown 04/18/2024 8:50 EDT 04/18/2024 13:06 EDT us Ale Bazan SWINGING CUT OFF SAW OPERATOR CHEMISTRY & BLOOD GAS ORDERABLES Final Result Performing Organization Address City/[facility]/ZIP Co de Phone Number [facility] [address] [place] [address] documented in this encounter Visit Diagnoses Diagnosis Vitamin D deficiency disease Unspecified vitamin D deficiency Special screening, prostate cancer Special screening for malignant neoplasm of prostate Reduced libido Decreased libido Hyperlipidemia, unspecified hyperlipidemia type Polycythemia, secondary documented in this encounter Care Teams Park Superintendent Relationship Specialty Start Date End Date Tex Crowder MD [address] [place] [phone] PCP - General 07/16/15 documented as of this encounter
--- OUTSIDE RECORDS SUMMARY | 2024-10-12 14:16 | XMS_ITS | Encounter Summary ---
Author Organization [facility] Address [address] [place] [address] Care Team Providers Care System Sales Consultant Name Role Phone Tex Crowder MD Primary Care Provider + Encounter Details Date Type Department Care Team (Late st Contact Info) Description 12/11/2021 Results Only [facility] - [facility] [address] [place] [address] Ale Bazan, DYLAN [address] [place] [address] Social History Tobacco Use Types [...] Procedure Name Priority Date/Time Associated Diagnosis Comments IRON Routine 12/11/2021 13:34 EDT documented in this encounter Results * (ABNORMAL) IRON (12/11/2021 13:34 EDT) Iron 247(H) 49 - 181 ug/dL [facility] 12/11/2021 13:3 4 EDT us Ale Bazan NP CHEMISTRY & BLOOD GAS ORDERABLES Final Result [facility] [address] [place] [address] documented in this encounter Visit Diagnoses Not on filedocumented in this encounter Care Teams System Sales Consultant Relationship Specialty Start Date End Date Tex Crowder MD [address] [place] [phone] PCP - General 07/16/15 documented as of this encounter
--- OUTSIDE RECORDS SUMMARY | 2024-10-12 14:16 | XMS_ITS | Encounter Summary ---
Author Organization [facility] Address [address] [place] [address] Care Team Providers Care Log Check Scaler Name Role Phone Tex Crowder MD Primary Care Provider + Encounter Details Date Type Department Care Team (Late st Contact Info) Description 12/11/2021 [facility] [address] [place] [address] Ale Bazan, BMET [address] [place] [address] Fatigue, unspecified type (Primary Dx) Social History Tobacco Use Types [...] Procedure Name Priority Date/Time Associated Diagnosis Comments IBC Routine 12/11/2021 13:24 EDT Fatigue, unspecified type FERRITIN Routine 12/11/2021 13:24 EDT Fatigue, unspecified type documented in this encounter Results * FERRITIN (12/11/2021 13:24 EDT) Ferritin 59 18 - 464 ng/mL 12/11/2021 18:43 EDT [facility] Blood VENOUS BLOOD / Unknown Venipuncture / Unknown 12/11/2021 13:24 EDT 12/11/2021 17:33 EDT Narrative [facility] - 12/11/2021 18:43 EDT The results of this assay can be falsely lowered due to the consumption of Biotin. us Ale Bazan BMET CHEMISTRY & BLOOD GAS ORDERABLES Final Result Performing Organization Address City/[facility] Co de Phone Number [facility] [address] [place] [address] * IBC (12/11/2021 13:24 EDT) Iron Binding Capacity 425 240 - 450 ??g/dL 12/11/2021 18:11 EDT [facility] Blood VENOUS BLOOD / Unknown Venipuncture / Unknown 12/11/2021 13:24 EDT 12/11/2021 17:33 EDT us Ale Bazan BMET CHEMISTRY & BLOOD GAS ORDERABLES Final Result Performing Organization Address [facility] de Phone Number [facility] [address] [place] [phone] documented in this encounter Visit Diagnoses Diagnosis Fatigue, unspecified type- Primary documented in this encounter Care Teams Log Check Scaler Relationship Specialty Start Date End Date Tex Crowder MD [address] [place] [phone] PCP - General 07/16/15 documented as of this encounter
--- OUTSIDE RECORDS SUMMARY | 2024-10-12 14:16 | XMS_ITS | Encounter Summary ---
Author Organization [facility] Address [address] [place] [address] Care Team Providers Care Foot Caster Name Role Phone Tex Crowder MD Primary Care Provider + Encounter Details Date Type Department Care Team (Late st Contact Info) Description 12/11/2021 Results Only [facility] Laboratory Services - [facility] [address] [place] [address] Ale Bazan, DYLAN [address] [place] [address] Social History Tobacco Use Types [...] Procedure Name Priority Date/Time Associated Diagnosis Comments LDL CHOLESTEROL Routine 12/11/2021 13:34 EDT documented in this encounter Results * (ABNORMAL) LDL CHOLESTEROL (12/11/2021 13:34 EDT) Calculated LDL 195(H) 60 - 100 mg/dL [facility] 12/11/2021 13:3 4 EDT us Ale Bazan NP HEMATOLOGY & PF4 ORDERABLES Aleida l Result [facility] [address] [place] [address] documented in this encounter Visit Diagnoses Not on filedocumented in this encounter Care Teams Foot Caster Relationship Specialty Start Date End Date Tex Crowder MD [address] [place] [phone] PCP - General 07/16/15 documented as of this encounter
--- OUTSIDE RECORDS SUMMARY | 2024-10-12 14:16 | XMS_ITS | Encounter Summary ---
Author Organization [facility] Address [address] [place] [address] Care Team Providers Care Rig Supervisor Name Role Phone Tex Crowder MD Primary Care Provider + Encounter Details Date Type Department Care Team (Late st Contact Info) Description 12/11/2021 Results Only [facility] Laboratory [facility] - [facility] [address] [place] [address] Ale Bazan, SERVICE LINE COORDINATOR [address] [place], [place] [phone] Social History Tobacco Use Types Packs/Day Years [...] Procedure Name Priority Date/Time Associated Diagnosis Comments LIPID PROFILE (INCLUDES CHOLESTEROL, TRIGLYCERIDES, HDL, LDL) Routine 12/11/2021 13:34 EDT documented in this encounter Results * (ABNORMAL) LIPID PROFILE (INCLUDES CHOLESTEROL, TRIGLYCERIDES, HDL, LDL) (12/11/2021 13:34 EDT) Cholesterol 254.00(H) 0.00 - 200.00 mg/dL [facility] dHDL 33.00(L) 40.00 - 60.00 mg/dL [facility] Triglycerides 130.00 0.00 - 150.00 mg/dL [facility] 12/11/2021 13:3 4 EDT us Ale Bazan SERVICE LINE COORDINATOR CHEMISTRY & BLOOD GAS ORDERABLES Final Result [facility] [address] [place], [place] [phone] documented in this encounter Visit Diagnoses Not on filedocumented in this encounter Care Teams Rig Supervisor Relationship Specialty Start Date End Date Tex Crodwer MD [address] [place] [phone] PCP - General 07/16/15 documented as of this encounter
--- OUTSIDE RECORDS SUMMARY | 2024-10-12 14:16 | XMS_ITS | Encounter Summary ---
Author Organization [facility] Address [address] [place] [address] Care Team Providers Care Spray Machine Tender Name Role Phone Tex Crowder MD Primary Care Provider + Encounter Details Date Type Department Care Team (Late st Contact Info) Description 04/15/2021 Results Only [facility] [phone] Yolanda Mcgill MD [address] [place] [phone] Social History Tobacco Use Types Packs/Day Years [...] Priority Date/Time Associated Diagnosis Comments VITAMIN D 25 POC - CV Routine 04/15/2021 13:06 EDT FREE T3 POC - [facility] Routine 04/15/2021 13 :06 EDT LIPID PANEL POC - [facility] Routine 13:06 EDT COMPREHENSIVE METABOLIC POC - [facility] Routine 04/15/2021 13:06 EDT FREE T4 POC - CV Routine 04/15/2021 13 :06 EDT THYROID STIM HORMONE POC - CV Routine 04/15/2021 13:06 EDT CBC W/PLT & DIFF,POINT OF CARE - [facility] Routine 04/15/2021 13:06 EDT POCT CHOLESTEROL LDL ([facility]) Routine 04/15/2021 13:06 EDT documented in this encounter Results * (ABNORMAL) VITAMIN D 25 POC - [facility] (04/15/2021 13:06 EDT) [facility] VIT D, 25 HYDROXY - [facility] 27(L) 30 - 100 NG/ML 04/16/2021 13:07 EDT [facility] 04/15/2021 13:0 6 EDT 04/15/2021 13:06 EDT Narrative [facility] - 04/16/2021 13:07 EDT CHRONIC RENAL IMPAIRMENT IS DEFINED GFR <60 MULTIPLY RESULT BY 1.210 FOR PATIENTS EGFR CALCULATED USING THE IDMS-TRACEABLE MDRD STUDY Yolanda Mcgill MD CHEMISTRY & BLOOD GAS ORDERABL ES Final Result Performing Organization Address City/[facility] Co de Phone Number [facility] [address] [place] [address] * THYROID STIM HORMONE POC - [facility] (04/15/2021 13:06 EDT) [facility] THYROID STIM HORMONE - [facility] 0.75 0.45 - 5.33 UIU/ML 04/16/2021 13:07 EDT [facility] 04/15/2021 13:0 6 EDT 04/15/2021 13:06 EDT Narrative [facility] - 04/16/2021 13:07 EDT CHRONIC RENAL IMPAIRMENT IS DEFINED GFR <60 MULTIPLY RESULT BY 1.210 FOR PATIENTS EGFR CALCULATED USING THE IDMS-TRACEABLE MDRD STUDY Yolanda Mcgill MD CHEMISTRY & BLOOD GAS ORDERABL ES Final Result Performing Organization Address City/[facility]/ZIP Co de Phone Number [facility] [address] [place] [address] * (ABNORMAL) LIPID PANEL POC - [facility] (04/15/2021 13:06 EDT) [facility] Triglyceride 92 0.00 - 150.00 MG/DL 04/16/2021 13:07 EDT [facility] Cholesterol 198 0.00 - 200.00 MG/DL 04/16/2021 13:07 EDT [facility] HDL 27(L) 40.00 - 60.00 MG/DL 04/16/2021 13:07 EDT [facility] 04/15/2021 13:0 6 EDT 04/15/2021 13:06 EDT [facility] - 04/16/2021 13:07 EDT CHRONIC RENAL IMPAIRMENT IS DEFINED GFR <60 MULTIPLY RESULT BY 1.210 FOR PATIENTS EGFR CALCULATED USING THE IDMS-TRACEABLE MDRD STUDY Yolanda Mcgill MD CHEMISTRY & BLOOD GAS ORDERABL ES Final Result [facility] [address] [place] [address] * (ABNORMAL) POCT CHOLESTEROL LDL ([facility]) (04/15/2021 13:06 EDT) [facility] LDL CHOLESTEROL - [facility] 153(H) 60 - 100 mg/dl 04/16/2021 13:07 EDT [facility] 04/15/2021 13:0 6 EDT 04/15/2021 13:06 EDT [facility] - 04/16/2021 13:07 EDT CHRONIC RENAL IMPAIRMENT IS DEFINED GFR <60 MULTIPLY RESULT BY 1.210 FOR PATIENTS EGFR CALCULATED USING THE IDMS-TRACEABLE MDRD STUDY us Yolanda Mcgill MD POINT OF CARE TEST ORDERABLES Final Result [facility] [address] [place] [address] * FREE T4 POC - [facility] (04/15/2021 13:06 EDT) [facility] FREE T4 - CV 0.77 0.58 - 1.64 NG/DL 04/16/2021 13:07 EDT [facility] Comment:THE RESULTS OF THIS ASSAY CAN BE FALSELY ELEVATED DUE TO THE CONSUMPTION OF BIOTIN 04/15/2021 13:0 6 EDT 04/15/2021 13:06 EDT [facility] - 04/16/2021 13:07 EDT CHRONIC RENAL IMPAIRMENT IS DEFINED GFR <60 MULTIPLY RESULT BY 1.210 FOR PATIENTS EGFR CALCULATED USING THE IDMS-TRACEABLE MDRD STUDY Yolanda Mcgill MD CHEMISTRY & BLOOD GAS ORDERABL ES Final Result Performing Organization Address [facility] Co de Phone Number [facility] [address] [place] [address] * (ABNORMAL) FREE T3 POC - CV (04/15/2021 13:06 EDT) [facility] T3,FREE - [facility] 4.27(A) 2.40 - 4.00 PG/ML 04/16/2021 13:07 EDT [facility] Comment:THE RESULTS OF THIS ASSAY CAN BE FALSELY ELEVATED DUE TO THE CONSUMPTION OF BIOTIN 04/15/2021 13:0 6 EDT 04/15/2021 13:06 EDT [facility] - 04/16/2021 13:07 EDT CHRONIC RENAL IMPAIRMENT IS DEFINED GFR <60 MULTIPLY RESULT BY 1.210 FOR PATIENTS EGFR CALCULATED USING THE IDMS-TRACEABLE MDRD STUDY us Yolanda Mcgill MD CHEMISTRY & BLOOD GAS ORDERABL ES Final Result Performing Organization Address City/[facility]/ZIP Co de Phone Number [facility] [address] [place] [address] * (ABNORMAL) COMPREHENSIVE METABOLIC POC - [facility] (04/15/2021 13:06 EDT) [facility] Albumin % 4.7 3.50 - 5.00 G/DL 04/16/2021 13:07 EDT [facility] ALKALINE PHOSPHATASE - [facility] 43 38.00 - 126.00 U/L 04/16/2021 13:07 [facility] BILIRUBIN TOTAL 1.0 0.20 - 1.30 MG/DL 04/16/2021 13:07 [facility] BUN - [facility] 19 7.00 - 20.00 MG/DL 04/16/2021 13:07 [facility] CALCIUM - [facility] 9.4 8.50 - 10.50 MG/DL 04/16/2021 13:07 [facility] Chloride 106 98.00 - 107.00 MMOL/L 04/16/2021 13:07 [facility] CO2 Total 25 22.00 - 30.00 MMOL/L 04/16/2021 13:07 [facility] CREATININE 1.0 0.70 - 1.50 MG/DL 04/16/2021 13:07 [facility] Anion Gap 7 7 - 17 04/16/2021 13:07 [facility] GLUCOSE - [facility] 90 70.00 - 100.00 MG/DL 04/16/2021 13:07 [facility] Potassium 4.4 3.50 - 5.10 MMOL/L 04/16/2021 13:07 [facility] Sodium 138 137.00 - 145.00 MMOL/L 04/16/2021 13:07 [facility] TOTAL PROTEIN - [facility] 7.5 6.30 - 8.20 G/DL 04/16/2021 13:07 [facility] SGOT/AST - [facility] 80(H) 15.00 - 46.00 U/L 04/16/2021 13:07 [facility] SGPT/ALT - [facility] 90(H) 0.00 - 50.00 U/L 04/16/2021 13:07 [facility] 04/15/2021 13:0 6 EDT 04/15/2021 13:06 [facility] - 04/16/2021 13:07 EDT CHRONIC RENAL IMPAIRMENT IS DEFINED GFR <60 MULTIPLY RESULT BY 1.210 FOR PATIENTS EGFR CALCULATED USING THE IDMS-TRACEABLE MDRD STUDY us Yolanda Mcgill MD CHEMISTRY & BLOOD GAS ORDERABL ES Final Result [facility] [address] [place] [address] * CBC W/PLT & DIFF,POINT OF CARE - [facility] (04/15/2021 13:06 EDT) Gran # 3.1 1.4 - 6.5 X10E3/UL 04/16/2021 13:07 [facility] GRAN % - [facility] 67.9 42.2 - 75.2 % 04/16/2021 13:07 [facility] HEMATOCRIT - [facility] 52.8 35.0 - 60.0 % 04/16/2021 13:07 [facility] HEMOGLOBIN - [facility] 17.5 11.0 - 18.0 G/DL 04/16/2021 13:07 [facility] LYMPH # - [facility] 1.2 1.2 - 3.4 X10E3/UL 04/16/2021 13:07 [facility] LYMPH% - [facility] 27.0 20.5 - 51.1 % 04/16/2021 13:07 [facility] MEAN CORPUSCULAR HGB - [facility] 29.8 27.0 - 31.0 PG 04/16/2021 13:07 [facility] MEAN CORPUSCULAR HGB CONC - [facility] 33.2 33.0 - 37.0 G/DL 04/16/2021 13:07 [facility] MEAN CELL VOLUME - [facility] 89.9 80.0 - 99.9 FL 04/16/2021 13:07 [facility] MONO # - [facility] 0.2 0.1 - 0.6 X10E3/UL 04/16/2021 13:07 [facility] MONO% - MC 5.1 1.7 - 9.3 % 04/16/2021 13:07 EDT [facility] MEAN PLATELET VOLUME - [facility] 9.1 7.8 - 11.0 FL 04/16/2021 13:07 T [facility] PLATELET COUNT 194 150 - 450 X10E3/UL 04/16/2021 13:07 [facility] RED BLOOD COUNT - [facility] 5.88 4.00 - 6.00 X10E6/UL 04/16/2021 13:07 [facility] RED CELL DISTRI WIDTH - [facility] 13.4 11.6 - 13.7 % 04/16/2021 13:07 [facility] WHITE BLOOD COUNT - [facility] 4.6 4.5 - 10.5 X10E3/UL 04/16/2021 13:07 [facility] 04/15/2021 13:0 6 EDT 04/15/2021 13:06 EDT Narrative [facility] - 04/16/2021 13:07 EDT CHRONIC RENAL IMPAIRMENT IS DEFINED GFR <60 MULTIPLY RESULT BY 1.210 FOR PATIENTS EGFR CALCULATED USING THE IDMS-TRACEABLE MDRD STUDY us Yolanda Mcgill MD CHEMISTRY & BLOOD GAS ORDERABL ES Final Result [facility] [address] [place] [address] documented in this encounter Visit Diagnoses Not on filedocumented in this encounter Care Teams Spray Machine Tender Relationship Specialty Start Date End Date Tex Crowder MD [address] [place] [phone] PCP - General 07/16/15 documented as of this encounter
--- OUTSIDE RECORDS SUMMARY | 2024-10-12 14:16 | XMS_ITS | Encounter Summary ---
Author Organization [facility] Address [address] [place] [address] Care Team Providers Care Digital Data Analyst Name Role Phone Tex Crowder MD Primary Care Provider + Encounter Details Date Type Department Care Team (Late st Contact Info) Description 12/11/2021 Results Only [facility] Laboratory Services - [facility] [address] [place] [address] Ale Bazan, COMMUNITY SERVICE WORKER [address] [place], [place] [phone] Social History Tobacco Use Types Packs/Day Years [...] Procedure Name Priority Date/Time Associated Diagnosis Comments BILIRUBIN (DIRECT) CALCULATED-HC Routine 12/11/2021 13:34 EDT documented in this encounter Results * BILIRUBIN (DIRECT) CALCULATED-HC (12/11/2021 13:34 EDT) Total Bilirubin 1.20 0.20 - 1.30 mg/dL [facility] Unconjugiated Bilirubin 1.00 0.00 - 1.10 mg/dL [facility] BC (CONJ BILI) - HC 0.00 0.00 - 0.30 mg/dL [facility] Direct Bilirubin 0.2 0.0 - 0.3 mg/dL [facility] 12/11/2021 13:3 4 EDT us Ale Bazan COMMUNITY SERVICE WORKER CHEMISTRY & BLOOD GAS ORDERABLES Final Result [facility] [address] [place] [address] documented in this encounter Visit Diagnoses Not on filedocumented in this encounter Care Teams Digital Data Analyst Relationship Specialty Start Date End Date Tex Crowder MD [address] [place] [phone] PCP - General 07/16/15 documented as of this encounter
--- OUTSIDE RECORDS SUMMARY | 2024-10-12 14:16 | XMS_ITS | Encounter Summary ---
Author Organization [facility] Address [address] [place] [address] Care Team Providers Care Behavioral Technician Name Role Phone Tex Crowder MD Primary Care Provider + Encounter Details Date Type Department Care Team (Late st Contact Info) Description 01/17/2013 Historical Results Only [facility] - Main [address] [id number] Carlos Martinez MD Social History Tobacco Use Types Packs/Day Years [...] Procedure Name Priority Date/Time Associated Diagnosis Comments SURGICAL PATHOLOGY Routine 01/17/2013 documented in this encounter Results * SURGICAL PATHOLOGY (01/17/2013) 01/17/2013 01/17/2013 11: 21 EDT Narrative [facility] - 01/19/2013 14:58 EDT ----- ------- Name: RONALD POWER ?: 75 ?Age/Sex: 44/M ?Unit#: [id number] ? Loc: END ? Status: DEP CLI ?? Reg Date: 01/17/13 ? Pt.Phone Number: ? ----- ------- Specimen: [id number] ? STATUS: SOUT ?Spec Date:01/17/13 ? Physician Copies: ?Carlos Martinez MD ?? Tissues: A ?? Gastrointestinal Tract (RECTUM) ?Tex Crowder MD ?? CPT: 79221 ?? Units: ??1 ?FINAL DIAGNOSIS ? Rectum, biopsy; ? - Chronic active proctitis. ? - Mild architectural disarray with gland distortion and branching. ? - Negative for dysplasia. ----- ------- ?COMMENT ? The biopsies all show expansion of the lamina propria by increased lymphocytes and plasma cells. ??There is also neutrophilic inflammation with focal acute cryptitis. ??Gland architecture shows mild disarray with gland distortion and occasional branching. ??No dysplasia is identified. 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 ? GROSS DESCRIPTION ? Received in formalin labeled with the patient's name and rectal bx are ten ? mucosal fragments ranging from 0.1 to 0.7 cm, e.s. 2 following additional ? fixation in Bouin's. ??CP ?? PREOP DX/CLINICAL HISTORY ?Family history of colon cancer, rectal bleeding. Signed ____(signature on file)____ Val Lindsey M.D. 01/19/13 By the signature above, the attending physician certifies that he/she has personally conducted a gross and/or microscopic examination of the described specimens and rendered or confirmed the above diagnosis. Test Performed by [facility], [address] [place] [address] Head Piece Assembler: Val Lindsey MD PHD ----- ------- us Carlos Martinez MD PATHOLOGY ORDERABLES Final Re sult Performing Organization Address [facility]/State/ZIP Co de Phone Number [facility] documented in this encounter Visit Diagnoses Not on filedocumented in this encounter Care Teams Behavioral Technician Relationship Specialty Start Date End Date Tex Crowder MD [address] [place] [address] [place] [phone] PCP - General 07/16/15 documented as of this encounter
--- OUTSIDE RECORDS SUMMARY | 2024-10-12 14:16 | XMS_ITS | Encounter Summary ---
Author Organization [facility] Address [address] [place] [address] Care Team Providers Care Automatic Screwmaker Name Role Phone Tex Crowder MD Primary Care Provider + Encounter Details Date Type Department Care Team (Late st Contact Info) Description 12/11/2021 Results Only [facility] Laboratory Services - [facility] [address] [place] [address] Ale Bazan, DYLAN [address] [place] [address] Social History Tobacco Use Types [...] Associated Diagnosis Comments VITAMIN D (25,OH) Routine 12/11/2021 13: 34 EDT documented in this encounter Results * (ABNORMAL) VITAMIN D (25,[place]) (12/11/2021 13:34 EDT) Vitamin D 21(L) 30 - 100 ng/ml [facility] 12/11/2021 13:3 4 EDT us Ale Bazan NP CHEMISTRY & BLOOD GAS ORDERABLES Final Result [facility] [address] [place] [address] documented in this encounter Visit Diagnoses Not on filedocumented in this encounter Care Teams Automatic Screwmaker Relationship Specialty Start Date End Date Tex Crodwer MD [address] [place] [phone] PCP - General 07/16/15 documented as of this encounter
--- OUTSIDE RECORDS SUMMARY | 2024-10-12 14:16 | XMS_ITS | Encounter Summary ---
Author Organization [facility] Address [address] [place] [address] Care Team Providers Care Wrapper Rewinder Name Role Phone Tex Crowder MD Primary Care Provider + Encounter Details Date Type Department Care Team (Late st Contact Info) Description 12/11/2021 Results Only [facility] Laboratory Services - [facility] [address] [place] [address] Ale Bazan, PLUMBER APPRENTICE [address] [place], [place] [address] Social History Tobacco Use Types Packs/Day Years [...] Procedure Name Priority Date/Time Associated Diagnosis Comments COMPREHENSIVE METABOLIC PANEL (CMP) Routine 12/11/2021 13:34 EDT documented in this encounter Results * (ABNORMAL) COMPREHENSIVE METABOLIC PANEL (CMP) (12/11/2021 13:34 EDT) [facility] Glucose 82.00 70.00 - 100.00 mg/dL [facility] Bun 18.00 7.00 - 20.00 mg/dL [facility] [[email or web address]] Creatinine 1.10 0.70 - 1.50 mg/dL [facility] Estimated GFR >60 [facility] Comment: Chronic renal impairment is defined as GFR <60 Multiply result by 1.210 for patients eGFR calculated using the IDMS-traceable MDRD study Sodium 139.00 137.00 - 145.00 mmol/L [facility] Potassium 4.10 3.50 - 5.10 mmol/L [facility] Chloride 103.00 98.00 - 107.00 mmol/L [facility] Carbon Dioxide 27.00 22.00 - 30.00 mmol/L [facility] Calcium 9.00 8.50 - 10.50 mg/dL [facility] Anion Gap 9 7 - 17 mmol/L [facility] Total Protein 7.30 6.30 - 8.20 g/dL [facility] Albumin 4.60 3.50 - 5.00 g/dL [facility] Total Bilirubin 1.20 0.20 - 1.30 mg/dL [facility] AST/SGOT 72.00(H) 15.00 - 46.00 U/L [facility] ALT/SGPT 110.00(H) 0.00 - 50.00 U/L [facility] ALK 57.00 38.00 - 126.00 U/L [facility] 12/11/2021 13:3 4 EDT us Ale Bazan PLUMBER APPRENTICE CHEMISTRY & BLOOD GAS ORDERABLES Final Result [facility] [address] [place] [address] documented in this encounter Visit Diagnoses Not on filedocumented in this encounter Care Teams Wrapper Rewinder Relationship Specialty Start Date End Date Tex Crowder MD [address] [place] [phone] PCP - General 07/16/15 documented as of this encounter
--- OUTSIDE RECORDS SUMMARY | 2024-10-12 14:16 | XMS_ITS | Encounter Summary ---
Author Organization [facility] Address [address] [place] [address] Care Team Providers Care Apartment Maintenance Manager Name Role Phone Tex Crowder MD Primary Care Provider + Encounter Details Date Type Department Care Team (Latest Contact Info) Description 12/11/2021 17:32 EDT - 12/11/2021 23:59 EDT Hospital Encounter [facility] - Main [address] [address] Debone Supervisor, [facility] Discharge Disposition: Home or Self Care [...] on filedocumented in this encounter Care Teams Apartment Maintenance Manager Relationship Specialty Start Date End Date Tex Crowder MD [address] [place] [phone] PCP - General 07/16/15 documented as of this encounter
--- OUTSIDE RECORDS SUMMARY | 2024-10-12 14:16 | XMS_ITS | Encounter Summary ---
Author Organization [facility] Address [address] [place] [address] Care Team Providers Care Branch Lead Name Role Phone Tex Crowder MD Primary Care Provider + Encounter Details Date Type Department Care Team (Late st Contact Info) Description 12/11/2021 Results Only [facility] Laboratory Services - [facility] [address] [place] [address] Ale Bazan, [employer] [address], [place] [id number] Social History Tobacco Use Types Packs/Day Years [...] COMPLETE BLOOD COUNT WITH DIFFERENTIAL (AUTO) Routine 12/11/2021 13:34 EDT documented in this encounter Results * (ABNORMAL) COMPLETE BLOOD COUNT WITH DIFFERENTIAL (AUTO) (12/11/2021 13:34 EDT) WBC 4.5 4.5 - 10.5 x10e3/uL [facility] Lymphocytes 25.0 20.5 - 51.1 % [facility] Monocytes 2.8 1.7 - 9.3 % [facility] Granulocytes 72.2 42.2 - 75.2 % [facility] Lymph # 1.1(L) 1.2 - 3.4 x10e3/uL [facility] Bremer # 0.1 0.1 - 0.6 x10e3/uL [facility] [[email or web address]] Gran # 3.2 1.4 - 6.5 x10e3/uL [facility] [[email or web address]] RBC 5.73 4.00 - 6.00 x10e6/uL [facility] [[email or web address]] HGB 18.1(H) 11.0 - 18.0 g/dL [facility] [[email or web address]] HCT 52.6 35.0 - 60.0 % [facility] [[email or web address]] MCV 91.9 80.0 - 99.9 fL [facility] [[email or web address]] MCH 31.6(H) 27.0 - 31.0 pg [facility] [[email or web address]] MCHC 34.4 33.0 - 37.0 g/dL [facility] [[email or web address]] RDW 14.8(H) 11.6 - 13.7 % [facility] [[email or web address]] PLT 169 150 - 450 x10e3/uL [facility] MPV 8.4 7.8 - 11.0 fL [facility] [[email or web address]] 12/11/2021 13:3 4 EDT us Ale Bazan [employer] HEMATOLOGY & PF4 ORDERABLES Aleida carney Result [facility] [[email or web address]] [address] [place] [address] documented in this encounter Visit Diagnoses Not on filedocumented in this encounter Care Teams Branch Lead Relationship Specialty Start Date End Date Tex Crwoder MD [address] [place] [id number] PCP - General 07/16/15 documented as of this encounter
[2024-10-12 15:22] LABS: Iron 200 ug/dL (65-175); Total Iron Binding Capacity 361 ug/dL (250-450); Transferrin Sat 55 % (20-55)
[2024-10-12 15:35] LABS: ALT 44 U/L (16-63); AST 24 U/L (15-37); Albumin 4.1 g/dL (3.4-5.0); Alkaline Phosphatase 48 U/L (46-116); Anion Gap 5.7 mmol/L (3-11); BUN 18 mg/dL (7-18); Bilirubin, Total 0.98 mg/dL (0.2-1.0); CO2 29.3 mmol/L (21.0-32.0); CREATININE 1.3 mg/dL (0.70-1.30); Calcium 9.3 mg/dL (8.5-10.1); Calculated LDL 153 mg/dL (<100); Chloride 102 mmol/L (98-107); Cholesterol 211 mg/dL (<200); Estimated GFR 67.34 (mL/min/1.73m2); Ferritin 178 ng/mL (26-388); Glucose 85 mg/dL (74-106); HDL Cholesterol 48 mg/dL (40-60); Magnesium 2.3 mg/dL (1.8-2.4); Potassium 4.2 mmol/L (3.5-5.1); Sodium 137 mmol/L (136-145); Total Protein 7.2 g/dL (6.4-8.2); Triglyceride 51 mg/dL (<150); Vitamin D 25 Total 51.4 ng/mL (30-100)
[2024-10-14 13:00] LABS: Lipoprotein (a) <7 nmol/L (<75)
[2024-10-18 16:03] LABS: Testosterone, Free 0.46 ng/dL (4.26-16.4); Testosterone, Total 17 ng/dL (240-950)
== END 2024-10-12 14:08 | disposition home or self-care (01) ==
LOC: LBO 14:14
PROVIDERS: PCP Internal Medicine; Visit Provider Nurse Practitioner Family
DX: E29.1 Testicular hypofunction (principal); R79.0 Abnormal level of blood mineral; K21.9 Gastro-esophageal reflux disease without esophagitis; E78.5 Hyperlipidemia, unspecified; E55.9 Vitamin D deficiency, unspecified; R74.8 Abnormal levels of other serum enzymes
CPT/HCPCS: 36415; 80053; 80061; 82306; 83695; 84402; 84403; 82728; 83540; 83550; 83735; 85025

== ENCOUNTER 2025-03-23 10:48 | Emergency (ER) | payer MEDICAID, SELFPAY ==
[2025-03-23 10:51] VITALS: BP 134/95; PULSE 87; RESP 14; TEMP 36.9; O2SAT 98
--- NOTE | 2025-03-23 11:15 | DI.CT_ITS ---
Exam(s) CT LUMBAR SPINE WO EXAM: CT LUMBAR SPINE WO CLINICAL HISTORY: pain post lifting injury, radiating down left leg,. TECHNIQUE: Imaging Protocol: Axial computed tomography images with coronal and sagittal reformatted images were created and reviewed COMPARISON: No exams were available for comparison FINDINGS: Bones: The last intervertebral disc space is designated the L5/S1 level for the numbering purpose of this examination. Age-appropriate mild degenerative changes are seen throughout the lumbar spine. Alignment is satisfactory. No fracture is seen. There is a rudimentary left rib on L1. T12-L1: No disc herniations or bulges are present. No central spinal canal or neural foraminal stenosis. L1-2: No disc herniations or bulges are present. No central spinal canal or neural foraminal stenosis. L2-3: There is a mild diffuse disc bulge at this level. No central spinal canal or neural foraminal stenosis. L3-4: There is a mild diffuse disc bulge at this level. No central spinal canal or neural foraminal stenosis. L4-5: No disc herniations or bulges are present. No central spinal canal or neural foraminal stenosis. L5-S1: There is soft tissue seen occupying the left lateral recess posterior to the L5 vertebral body suspicious for disc herniation. This would cause compression of the left L5 nerve root. (Series 16 images 61 through 56). Note is made of lack of the fat and nerve root in this region as compared to the contralateral side. No central spinal canal or neural foraminal stenosis. Soft Tissues: The visualized SI joints and sacrum are will maintained. The paraspinal soft tissues are unremarkable. IMPRESSION: 1. Findings suspicious for disc herniation with obstruction of the left lateral recess at L5-S1. This would cause compression of the left L5 nerve root. An MRI of the lumbar spine is recommended for confirmation and better characterization. 2. No acute fracture or dislocation is present. RADIATION DOSE DELIVERED: 687.63mGy.cm Total DLP 687.63mGy.cm Total DLP DATA REPOSITORY: All CT scans at this facility are submitted to the National Radiology Data Registry (NRDR) Dose Index Registry (DIR) with the [employer] (ACR). RADIATION OPTIMIZATION: All CT scans at this facility use at least one of these dose optimization techniques: automated exposure control; mA and/or kV adjustment per patient size (includes targeted exams where dose is matched to clinical indication); or iterative reconstruction.
[2025-03-23] MEDS: predniSONE 20 MG TAB 40 MG PO (12:06)
[2025-03-23 13:05] VITALS: BP 121/75; PULSE 84; O2SAT 96
--- NOTE | 2025-03-24 10:43 | W.ED.GENAD ---
Discharge Plan Disposition Patient Disposition: Home Condition: Stable Discharge Details Clinical Impression: Acute lumbar radiculopathy Primary Care Provider: Tex Crowder ED Provider: Norma Mirza Home Meds and New Rx's Prescriptions: New prednisone 10 mg tablet 10 mg PO DIRECTED Qty: 24 0RF Rx Instructions: tabs x3 days, 3 tabs x2, 2 tabs x 1 day, 1 tab x1 day Continued multivitamin Tablet 1 tab PO DAILY cholecalciferol (vitamin D3) 125 mcg (5,000 unit) capsule 125 mcg PO DAILY Discharge Instructions Instructions: Radiculopathy (DC) Additional Instructions: take prednisone as prescribed follow-up with pcp for MRI outpatient referral to [facility] sent return earlier with changes in bowel or bladder, weakness, or sooner if any new concerns arise Referrals: Tex Crowder [Primary Care Provider] Discharge Data Discharge Date/Time-TO BE ENTERED AT DEPARTURE: 03/23/25 13:05 HPI General Date/Time Provider Initiated Documentation: 03/23/25 11:11. HPI Narrative: 49-year-old male with back pain radiating to the right lower extremity. Flipped snowboard 6 months ago and lifted heavy joseph 6 days ago, exacerbating pain. Saw doctor yesterday, ordered x-rays. Pain worsened today, prompting visit. Seeing physical therapist. No nausea, vomiting, bowel/bladder changes, strength changes, fever, chills, or illicit substance use. Related Data Home Medications ?Medication ?Instructions ?Recorded ?Confirmed cholecalciferol (vitamin D3) 125 125 mcg PO DAILY 05/04/22 03/23/25 mcg (5,000 unit) capsule multivitamin 1 tab PO DAILY 05/04/22 03/23/25 prednisone 10 mg tablet 10 mg PO DIRECTED #24 tabs 03/23/25 Previous Rx's ?Medication ?Instructions ?Recorded prednisone 10 mg tablet 10 mg PO DIRECTED #24 tabs 03/23/25 Allergies Allergy/AdvReac Type Severity Reaction Status Date / Time iodine Allergy Severe Anaphylaxis Verified 03/23/25 10:58 seafood Allergy Severe Anaphylaxis Uncoded 03/23/25 10:58 General Stated Complaint: Nk/Back Pain LUPILLO: 4 Exam Narrative Exam Narrative: General Appearance: Normal. Vital signs: Within normal limits. HEENT: Within normal limits. Respiratory: Within normal limits. Back, Musculoskeletal: Lumbar spine tenderness. Midline paraspinal tenderness. Extremities: Negative straight leg raise. Sensation and distal pulses intact bilaterally. Skin: Warm and dry, no rash. Neurological: No cauda equina syndrome. Ambulatory with antalgic unsteady gait. Course Vital Signs Vital signs: Vital Signs Temperature 36.9 C 03/23/25 10:51 Pulse 87 03/23/25 10:51 Respiratory Rate 14 03/23/25 10:51 Blood Pressure 134/95 H 03/23/25 10:51 Pulse Oximetry 98 03/23/25 10:51 Temperature 36.9 C 03/23/25 10:51 Temperature Source Oral 03/23/25 10:51 Pulse 84 03/23/25 13:05 Respiratory Rate 14 03/23/25 10:51 Blood Pressure 121/75 03/23/25 13:05 Blood Pressure Position Sitting 03/23/25 10:51 Pulse Oximetry 96 03/23/25 13:05 Oxygen Delivery Method Room Air 03/23/25 10:51 Oxygen Flow Rate 0 03/23/25 10:51 Pain Level 1 03/23/25 13:[address] shows herniated disk at L4-L5, L2-L3, L3-L4. Per radiology interpretation of my review Initial Assessment: 49-year-old male with back pain radiating to right lower extremity, worsened after lifting a heavy joseph 6 days ago. No cauda equina syndrome. ED Course: - CT ordered, shows herniated disks at L4-L5, L2-L3, L3-L4. - Prescribed prednisone. - Return precautions given and understood. Final Assessment: Patient presents with back pain radiating to right lower extremity, worsened after lifting a heavy joseph. CT shows herniated disks at L4-L5, L2-L3, L3-L4. Prescribed prednisone and provided return precautions. Clinical Impression: - Herniated disks at L4-L5, L2-L3, L3-L4. Disposition: - Discharge: Patient to follow up with outpatient MRI. Patient Education: Return precautions given and understood. MDM Components Evaluation: - Number of Differential Diagnoses or Management Options: Herniated disks at L4-L5, L2-L3, L3-L4. - Amount and Complexity of Data Reviewed: CT results. - Risk of Complication and Morbidity or Mortality: Low risk as no findings consistent with cauda equina syndrome. PFSH All Active Problems (Updated 03/23/25 @ 12:51 by GAB Cisse) Acute lumbar radiculopathy (Acute) Ulcerative proctitis (Acute) Decreased libido (Acute) GERD (gastroesophageal reflux disease) (Chronic) Hyperlipidemia (Acute) Vitamin D deficiency (Acute) Fatigue (Acute) Cough (Acute) Acute bronchospasm (Acute) Abnormal finding on thyroid function test (Acute) Elevated liver enzymes (Acute) Surgical History (Updated 05/05/22 @ 14:21 by Parker Welch MD) S/P excision of lipoma Social History Smoking/Tobacco Use Status: Never Smoking risk assessment performed?: Yes Alcohol Intake: never Drug use: Never Substance use type: does not use
== END 2025-03-23 13:05 | disposition home or self-care (01) ==
PROVIDERS: Emergency Provider Physician Assistant; PCP Internal Medicine
DX: M54.16 Radiculopathy, lumbar region (principal); E78.5 Hyperlipidemia, unspecified
CPT/HCPCS: 99283; 99284; 72131; J7512

== ENCOUNTER 2025-08-29 21:44 | Emergency (ER) | payer MEDICAID, SELFPAY ==
[2025-08-29 21:44] VITALS: BP 147/87; PULSE 94; RESP 20; TEMP 36.9; O2SAT 93
--- NOTE | 2025-08-29 21:45 | DI.CT_ITS ---
Exam(s) CT HEAD CERV SPINE FACIAL WO EXAM: CT HEAD CERV SPINE FACIAL WO CLINICAL HISTORY: fall, syncope/seizure, hit head. TECHNIQUE: Imaging Protocol: Axial computed tomography images with coronal and sagittal reformatted images were created and reviewed COMPARISON: No exams were available for comparison FINDINGS: CT BRAIN: There are no skull fractures nor fluid in the visualized paranasal sinuses. There is no evidence of intracranial hemorrhage, mass effect, or shift of midline structures. There are no extra-axial fluid collections. The ventricles are not enlarged or shifted and there is no blood within the ventricular system nor within the basal cisterns. CT MAXILLOFACIAL BONES: There is no evidence of facial fractures nor fluid in the visualized paranasal sinuses. there is no evidence of orbital blowout fracture. There is subcutaneous fat stranding over the right-side of the face mandible angle level. There is no abscess at this level and no radiopaque foreign body. No evidence of mandible fracture. CT CERVICAL SPINE: There is no evidence of fracture nor listhesis. No significant prevertebral soft tissue swelling. There is moderate chronic disc space narrowing at C5-6 and C6-7 levels. There are small bilateral Luschka joint osteophytes at these levels. There is no significant facet arthropathy and no facet malalignment evident. No significant osseous lesions evident. IMPRESSION: No acute intracranial findings on this noninfused CT scan of the brain. No evidence of facial nor orbital blowout fractures.There is, however, some stranding in the fat subjacent to the angle of the right-side of the mandible. No evidence of cervical spine fracture, malalignment, nor acute compromise of the cervical spinal canal. Chronic degenerative disc disease C5-6 and C6-7 levels noted. Preliminary V rad report was reviewed. RADIATION DOSE DELIVERED: 2,324.94mGy.cm Total DLP DATA REPOSITORY: All CT scans at this facility are submitted to the National Radiology Data Registry (NRDR) Dose Index Registry (DIR) with the [employer] (ACR). RADIATION OPTIMIZATION: All CT scans at this facility use at least one of these dose optimization techniques: automated exposure control; mA and/or kV adjustment per patient size (includes targeted exams where dose is matched to clinical indication); or iterative reconstruction.
--- NOTE | 2025-08-29 21:45 | RT.EKG_ITS ---
APPROVED REPORT Exam: Resting ECG Reason for Exam: Seizure? Patient Location: E HR:95 bpm ECG Measurements Heart Rate 95 AXIS TX 169 P 46 QRSd 120 QRS 6 QT 345 T 8 QTc 434 Conclusion Sinus rhythm...normal P axis, V-rate 60- 99 Probable left atrial enlargement...P >50mS, <-0.10mV V1 IVCD, consider RBBB...QRSd>120mS, terminal axis(90,270) ST elev, probable normal early repol pattern...ST elevation, age<55 Physician: No STEMI
--- NOTE | 2025-08-29 21:56 | DI.CT_ITS ---
Exam(s) CT CHEST PE CTA EXAM: CT CHEST PE CTA CLINICAL HISTORY: recently torn L ingram, now syncope, eval for clot. TECHNIQUE: Imaging Protocol: CT angiography of the chest was performed using pulmonary embolus protocol. Multi planar reconstructions were performed. CONTRAST MATERIAL: Intravenous: Omnipaque 350 Contrast volume: 100 cc COMPARISON: No exams were available for comparison FINDINGS: CHEST: PULMONARY ARTERIES: There are no intraluminal filling defects to suggest acute pulmonary emboli. LUNGS: There are no infiltrates nor evidence of pulmonary infarction.. There are no pleural effusions. MEDIASTINUM: There is no hilar nor mediastinal adenopathy. Visualized thyroid unremarkable. CARDIAC: Heart size is upper normal. There is no pericardial effusion.Caliber of the thoracic aorta is within normal limits. There is no significant shift of the interventricular septum. PARTIALLY VISUALIZED UPPERMOST ABDOMEN: No obvious findings OSSEOUS: No significant osseous lesions.. IMPRESSION: 1. No evidence of acute pulmonary emboli. No evidence of pulmonary infarction. 2. No significant focal pulmonary findings. No pleural effusions. Preliminary V rad report was reviewed. RADIATION DOSE DELIVERED: 125.53mGy.cm Total DLP DATA REPOSITORY: All CT scans at this facility are submitted to the National Radiology Data Registry (NRDR) Dose Index Registry (DIR) with the [employer] (ACR). RADIATION OPTIMIZATION: All CT scans at this facility use at least one of these dose optimization techniques: automated exposure control; mA and/or kV adjustment per patient size (includes targeted exams where dose is matched to clinical indication); or iterative reconstruction.
[2025-08-29 22:01] VITALS: BP 148/74; PULSE 90; PULSE 92; RESP 24; O2SAT 92
[2025-08-29 22:04] LABS: Abs Immature Grans 0.10 10^3/uL (0.0-0.06); HCT 54.5 % (40.0-50.0); HGB 18.3 g/dL (13.5-17.5); Immature Grans % 1.5 %; MCH 30.7 pg (27.0-33.0); MCHC 33.6 % (32.0-36.0); MCV 91 fL (80-95); MPV 10.2 fL (8.0-11.0); Platelet Count 197 10^3/uL (130-400); RBC 5.97 10^6/uL (4.36-5.78); RDW 13.3 % (11.8-14.1); RDW-SD 44.9 fL; WBC 6.77 10^3/uL (4.4-10.8)
[2025-08-29 22:18] LABS: INR 1.0 (0.9-1.1); PTT Activated 20.5 sec (20.6-30.2); Prothrombin Time 9.7 sec (9.1-11.1)
[2025-08-29 22:20] VITALS: BP 121/79; PULSE 93; PULSE 97; RESP 20; O2SAT 92
[2025-08-29 22:21] LABS: Troponin I 10 ng/L (<54)
[2025-08-29 22:22] LABS: ALT 90 U/L (10-49); AST 69 U/L (<34); Albumin 4.7 g/dL (3.2-5.0); Alkaline Phosphatase 56 U/L (46-116); Anion Gap 9.7 mmol/L (3-11); BUN 18 mg/dL (9-23); Bilirubin, Total 0.7 mg/dL (0.2-1.2); CO2 27.3 mmol/L (20.0-31.0); Calcium 9.4 mg/dL (8.3-10.6); Chloride 102 mmol/L (98-107); Glucose 91 mg/dL (74-106); Potassium 3.9 mmol/L (3.5-5.1); Sodium 139 mmol/L (136-145); Total Protein 7.3 g/dL (5.7-8.2)
[2025-08-29] MEDS: Normal Saline 1,000 ML 1000 ML IV (22:23)
[2025-08-29 22:24] LABS: TSH (W/Ref FT4) 1.73 uIU/mL (0.55-4.78)
--- NOTE | 2025-08-29 22:24 | W.ED.GENAD ---
Discharge Plan Disposition Patient Disposition: Home Condition: Good Discharge Details Clinical Impression: Syncope Primary Care Provider: Tex Crowder ED Provider: Abelino Mahoney Home Meds and New Rx's Prescriptions: No Action multivitamin Tablet 1 tab PO DAILY cholecalciferol (vitamin D3) 125 mcg (5,000 unit) capsule 125 mcg PO DAILY prednisone 10 mg tablet 10 mg PO DIRECTED Qty: 24 0RF Rx Instructions: tabs x3 days, 3 tabs x2, 2 tabs x 1 day, 1 tab x1 day Discharge Instructions Instructions: Syncope (fainting) Additional Instructions: At this time your imaging and workup has returned stable and reassuring. There is no signs of blood clots, heart attack, or other significant abnormality. Please drink plenty of fluids and stay well-hydrated. If you notice any worsening of your symptoms, or any new symptoms such as vomiting, diarrhea, fever, chills, shortness of breath, chest pain, numbness, weakness, or fainting , please return immediately to the emergency department for reevaluation. Please follow up with your primary care provider as soon as possible for reassessment and reevaluation. As always, it was a pleasure participating in your medical care today. Stand Alone Forms: Portal Information Referrals: Tex Crowder [Primary Care Provider] HPI General Date/Time Provider Initiated Documentation: 08/29/25 21:56. HPI Narrative: This is a 50-year-old male with a past medical history of testosterone replacement therapy, who presents today for evaluation of syncope. Patient states that he was lifting and moving a bunch of heavy boxes in the garage this evening, and then while lifting one of the boxes he began to feel lightheaded like he was going to pass out, he looked up at the ceiling and the next thing he remembers was being surrounded by the his family on the ground. He hit the back of his head. He did bite his tongue. He denies any other complaints. At this time he denies any pain. He denies any pain in his head, neck, chest abdomen or pelvis. He denies any numbness or tingling. No other complaints. Of note within the past week the patient was participating in an arm wrestling event. He tore part of his left pectoralis major muscle. He has a large bruise over the left chest. He denies any pain in this area. No other complaints. No history of blood clots. No history of syncope or seizures. No recent long trips or surgeries. Related Data Home Medications ?Medication ?Instructions ?Recorded ?Confirmed cholecalciferol (vitamin D3) 125 125 mcg PO DAILY 05/04/22 03/23/25 mcg (5,000 unit) capsule multivitamin 1 tab PO DAILY 05/04/22 03/23/25 prednisone 10 mg tablet 10 mg PO DIRECTED #24 tabs 03/23/25 Previous Rx's ?Medication ?Instructions ?Recorded prednisone 10 mg tablet 10 mg PO DIRECTED #24 tabs 03/23/25 Allergies Allergy/AdvReac Type Severity Reaction Status Date / Time iodine Allergy Severe Anaphylaxis Verified 08/29/25 22:34 seafood Allergy Severe Anaphylaxis Uncoded 08/29/25 22:34 General Stated Complaint: Fall/Non TraumaCriteria LUPILLO: 3 Exam Narrative Exam Narrative: 1.Const: Well-nourished, Well-developed, appearing stated age 2.Eyes: PERRL, no conjunctival injection, and symmetrical lids. 3.ENT: Atraumatic external nose and ears. Moist MM. Neck: Symmetric, trachea midline, No thyromegaly. There is no evidence of raccoon eyes, godinez sign, CSF rhinorrhea, mastoid tenderness, cranial crepitus, hemotympanum, exophthalmos, or hyphema. Patient demonstrates intact dentition with no signs of tooth avulsion or fracture, no signs of jaw deformity, no evidence of a LeFort's fracture, with an intact palate, nose and orbital region. There is no evidence of a nasal septal hematoma. No proptosis. Jaw closes symmetrically. Airway is clear. 4.CVS: +S1/S2, Peripheral pulses 2+ and equal in all extremities. Brisk capillary refill in all extremities. 5.RESP: Unlabored respiratory effort. Clear to auscultation bilaterally. No wheezes rales or rhonchi 6.GI: Soft, Nontender/Nondistended, No hepatosplenomegaly. No guarding or rebound. 7.MSK: Normocephalic/Atraumatic, Extremities w/o deformity or ttp No cyanosis or clubbing, Normal movement of all extremities. No cervical thoracic or lumbar spine tenderness 8.Skin: Warm, Dry. No rashes or lesions. Large hematoma noted under left pectoralis muscle. Abrasion noted over posterior parietal area on scalp. 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 Sensation grossly intact, no focal neurologic deficits. 10.Psych: (AAO) x3. Appropriate mood and affect Course Vital Signs Vital signs: Vital Signs Temperature 36.9 C 08/29/25 21:44 Pulse 94 H 08/29/25 21:44 Respiratory Rate 20 08/29/25 21:44 Blood Pressure 147/87 H 08/29/25 21:44 Pulse Oximetry 93 08/29/25 21:44 Temperature 36.9 C 08/29/25 21:44 Pulse 94 H 08/29/25 21:44 Respiratory Rate 20 08/29/25 21:44 Blood Pressure 147/87 H 08/29/25 21:44 Blood Pressure Position Supine 08/29/25 21:44 Pulse Oximetry 93 08/29/25 21:44 Oxygen Delivery Method Room Air 08/29/25 21:44 Oxygen Flow Rate 0 08/29/25 21:44 Pain Level 0 08/29/25 22:04 Lab/Test Results Lab/Test Results: Laboratory Tests Range/Units 08/29/25 21:57 WBC (4.4-10.8) 10^3/uL 6.77 RBC (4.36-5.78) 10^6/uL 5.97 H Hgb (13.5-17.5) g/dL 18.3 H Hct (40.0-50.0) % 54.5 H MCV (80-95) fL 91 MCH (27.0-33.0) pg 30.7 MCHC (32.0-36.0) % 33.6 RDW (11.8-14.1) % 13.3 Plt Count (130-400) 10^3/uL 197 MPV (8.0-11.0) fL 10.2 Immature Gran % % 1.5 Neutrophils % % 68.6 Lymphocytes % % 19.6 Monocytes % % 9.3 Eosinophils % % 0.3 Basophils % % 0.7 Nucleated RBC % (0.0-0.3) % 0.0 Absolute Neutrophils (1.2-6.7) 10^3/uL 4.64 Absolute Lymphocytes (1.2-3.4) 10^3/uL 1.33 Absolute Monocytes (0.1-0.8) 10^3/uL 0.63 Absolute Eosinophils (0.0-0.7) 10^3/uL 0.02 Absolute Basophils (0.0-0.2) 10^3/uL 0.05 PT (9.1-11.1) sec 9.7 INR (0.9-1.1) 1.0 APTT (20.6-30.2) sec 20.5 L Sodium (136-145) mmol/L 139 Potassium (3.5-5.1) mmol/L 3.9 Chloride (98-107) mmol/L 102 Carbon Dioxide (20.0-31.0) mmol/L 27.3 Anion Gap (3-11) mmol/L 9.7 BUN (9-23) mg/dL 18 Creatinine (0.73-1.18) mg/dL 1.23 H Est GFR (CKD-EPI 2020) (mL/min/1.73m2) 62.24 Glucose (74-106) mg/dL 91 Calcium (8.3-10.6) mg/dL 9.4 Total Bilirubin (0.2-1.2) mg/dL 0.7 AST (<34) U/L 69 H ALT (10-49) U/L 90 H Alkaline Phosphatase (46-116) U/L 56 Troponin I (<54) ng/L 10 Total Protein (5.7-8.2) g/dL 7.3 Albumin (3.2-5.0) g/dL 4.7 TSH (0.55-4.78) uIU/mL 1.73 Medical Decision Making This is a 50-year-old male with a past medical history of testosterone replacement therapy, who presents today for evaluation of syncope. Patient states that he was lifting and moving a bunch of heavy boxes in the garage this evening, and then while lifting one of the boxes he began to feel lightheaded like he was going to pass out, he looked up at the ceiling and the next thing he remembers was being surrounded by the his family on the ground. He hit the back of his head. He did bite his tongue. He denies any other complaints. At this time he denies any pain. He denies any pain in his head, neck, chest abdomen or pelvis. He denies any numbness or tingling. No other complaints. Of note within the past week the patient was participating in an arm wrestling event. He tore part of his left pectoralis major muscle. He has a large bruise over the left chest. He denies any pain in this area. No other complaints. No history of blood clots. No history of syncope or seizures. No recent long trips or surgeries. Patient's physical exam demonstrates well-appearing male, there is a contusion on the posterior scalp, and a large old bruise over the left pectoralis major muscle. Vital signs are stable, no tachycardia, no signs of hypotension. He also demonstrates a normal neurologic assessment. Differential at this time is highest for syncope secondary to a vagal event, however with his recent pectoralis muscle injury differential certainly also includes PE. Cardiac dysrhythmia less likely. Testosterone replacement therapy does include potential risk for ACS, however the patient's EKG is very benign/reassuring. We will evaluate for these concerning etiologies, monitor closely and reassess. 10:37 PM Patient does state that he has a seafood allergy, but he has never had an allergic reaction to iodine in the past. I discussed the risks and benefits of CT imaging and contrast and potential likelihood ratios of having a reaction to IV contrast. Patient has elected to move forward with a CT scan understanding the risks and benefits. We will give Solu-Medrol and Benadryl, we will monitor the patient closely. 11:37 PM Laboratory workup has returned unremarkable. Patient's hemoglobin is elevated at 18, but he is on TRT. Recommend close follow-up with his PCP about this. Patient states that he is aware of this elevated level already. Electrolytes normal, renal function is stable. Slight increase in his transaminases but these are notably mild/minimal. Initial troponin normal. TSH normal. Patient feels well, with no history of seizures, no focal neurologic deficits, no postictal phase, I do not see evidence to suggest a seizure. I suspect it was a vasovagal event. Patient states that he was essentially lifting a dirt bike without any warm up. With no EKG abnormality, no signs of cardiac strain or dysrhythmia, I feel this is also notably less likely as a cause. All imaging of the CT head and neck face and chest and PE study are negative for acute process. No evidence of PE or dissection. 12:20 AM Laboratory workup with delta troponin has returned, no increase. Patient continues to feel well. He has been well-hydrated. Patient shows no evidence of acute life-threatening etiology at this time. Patient stable for discharge. Recommend close PCP follow-up. I have extensively reviewed the treatment plan and discharge instructions with the patient and their family. I have addressed all patient concerns at this time. The patient and family was made aware of what symptoms to monitor for that would warrant a return to the emergency department. Discussed the plan with the patient and family, they demonstrate verbal understanding and agreement with our assessment and plan at this time. The documentation in this chart was dictated using [employer] dictation software. Please excuse any dictation errors. FINDINGS: Pulmonary arteries: No acute pulmonary embolus. Aorta: Unremarkable. No aortic aneurysm. No aortic dissection. Lungs: The lungs are clear. Pleural spaces: Unremarkable. No pneumothorax. No pleural effusion. Heart: Heart is normal size. No pericardial effusion. Lymph nodes: No enlarged lymph nodes. Bones/joints: Bones have a normal appearance. No acute fracture or suspicious bone lesion. Soft tissues: Unremarkable. IMPRESSION: 1. No pulmonary embolus. 2. No acute pulmonary findings. Thank you for allowing us to participate in the care of your patient. Dictated and Authenticated by: Tyesha Julian MD 08/29/2025 11:07 PM Eastern Time ([place] & [place]) FINDINGS: Brain: No acute intracranial hemorrhage or mass lesions. No midline shift. Normal garcia-white differentiation. Cerebral ventricles: No ventriculomegaly. Paranasal sinuses: Visualized sinuses are unremarkable. No fluid levels. Mastoid air cells: Visualized mastoid air cells are well aerated. Bones: Unremarkable. No acute fracture. Soft tissues: Unremarkable. IMPRESSION: No acute intracranial findings. FINDINGS: Paranasal sinuses: No air-fluid levels. Orbital cavities: Orbits are normal. Globes are unremarkable. Bones: No acute fracture. Soft tissues: Fat stranding is present over the right mandible. IMPRESSION: No acute maxillofacial fracture. FINDINGS: Bones: No acute fracture. Normal alignment. No significant disc bulge or herniation. No severe spinal canal stenosis. No significant neural foraminal narrowing. Lungs: Lung apices are normal. Soft tissues: Unremarkable. IMPRESSION: No acute cervical spine fracture. Thank you for allowing us to participate in the care of your patient. Dictated and Authenticated by: Tyesha Julian MD 08/29/2025 11:02 PM Eastern Time ([place] & [place]) PFSH All Active Problems (Updated 08/29/25 @ 23:42 by Abelino Mahoney DO) Syncope (Chronic) Ulcerative proctitis (Acute) Decreased libido (Acute) GERD (gastroesophageal reflux disease) (Chronic) Hyperlipidemia (Acute) Vitamin D deficiency (Acute) Fatigue (Acute) Cough (Acute) Acute bronchospasm (Acute) Abnormal finding on thyroid function test (Acute) Elevated liver enzymes (Acute) Surgical History (Updated 05/05/22 @ 14:21 by Parker Welch MD) S/P excision of lipoma Social History Smoking/Tobacco Use Status: Never Smoking risk assessment performed?: Yes Alcohol Intake: never Drug use: Never Substance use type: does not use Housing: house Do you feel safe at home: Yes Do you feel safe in your relationship?: Yes
[2025-08-29] MEDS: diphenhydrAMINE 50 MG/ML VIAL 25 MG IVP (22:41)
[2025-08-29] MEDS: methylPREDNISolone SUCC 125 MG VIAL IVP (22:43)
[2025-08-29] MEDS: Omnipaque 350 MG/ML 100 ML BTL IJ (22:49)
[2025-08-29] MEDS: Normal Saline - Diluent 50 ML VIAL IJ (22:49)
[2025-08-29] MEDS: Normal Saline Flush 10 ML SYR IVP (22:50)
[2025-08-29 23:03] VITALS: BP 140/96; PULSE 91; PULSE 93; RESP 29; O2SAT 95
--- NOTE | 2025-08-29 23:03 | DI.VRAD_ITS ---
PROCEDURE INFORMATION: Exam: CT Head Without Contrast Exam date and time: 08/29/2025 10:32 PM Age: 50 years old Clinical indication: Injury or trauma; Other: Fall, syncope, seizure. Head injury TECHNIQUE: Imaging protocol: Computed tomography of the head without contrast. Radiation optimization: All CT scans at this facility use at least one of these dose optimization techniques: automated exposure control; mA and/or kV adjustment per patient size (includes targeted exams where dose is matched to clinical indication); or iterative reconstruction. COMPARISON: No relevant prior studies available. FINDINGS: Brain: No acute intracranial hemorrhage or mass lesions. No midline shift. Normal garcia-white differentiation. Cerebral ventricles: No ventriculomegaly. Paranasal sinuses: Visualized sinuses are unremarkable. No fluid levels. Mastoid air cells: Visualized mastoid air cells are well aerated. Bones: Unremarkable. No acute fracture. Soft tissues: Unremarkable. IMPRESSION: No acute intracranial findings. PROCEDURE INFORMATION: Exam: CT Maxillofacial Without Contrast Exam date and time: 08/29/2025 10:32 PM Age: 50 years old Clinical indication: Injury or trauma; Other: Fall, syncope, seizure. Head injury TECHNIQUE: Imaging protocol: Computed tomography of the face without contrast. Radiation optimization: All CT scans at this facility use at least one of these dose optimization techniques: automated exposure control; mA and/or kV adjustment per patient size (includes targeted exams where dose is matched to clinical indication); or iterative reconstruction. COMPARISON: No relevant prior studies available. FINDINGS: Paranasal sinuses: No air-fluid levels. Orbital cavities: Orbits are normal. Globes are unremarkable. Bones: No acute fracture. Soft tissues: Fat stranding is present over the right mandible. IMPRESSION: No acute maxillofacial fracture. PROCEDURE INFORMATION: Exam: CT Cervical Spine Without Contrast Exam date and time: 08/29/2025 10:32 PM Age: 50 years old Clinical indication: Injury or trauma; Other: Fall, syncope, seizure. Head injury TECHNIQUE: Imaging protocol: Computed tomography of the cervical spine without contrast. Radiation optimization: All CT scans at this facility use at least one of these dose optimization techniques: automated exposure control; mA and/or kV adjustment per patient size (includes targeted exams where dose is matched to clinical indication); or iterative reconstruction. COMPARISON: CR XR CHEST 2V PA LATERAL 01/13/2022 7:53 AM FINDINGS: Bones: No acute fracture. Normal alignment. No significant disc bulge or herniation. No severe spinal canal stenosis. No significant neural foraminal narrowing. Lungs: Lung apices are normal. Soft tissues: Unremarkable. IMPRESSION: No acute cervical spine fracture. Dictated and Authenticated by: Tyesha Julian MD. Orderin Denzel Roca MD
--- NOTE | 2025-08-29 23:07 | DI.VRAD_ITS ---
PROCEDURE INFORMATION: Exam: CTA Chest With Contrast Exam date and time: 08/29/2025 10:52 PM Age: 50 years old Clinical indication: Other: Recently torn L ingram, now syncope, eval for clot TECHNIQUE: Imaging protocol: Computed tomographic angiography of the chest with contrast. Exam focused on the arteries. 3D rendering (Not supervised by radiologist): MIP and/or 3D reconstructed images were created by the technologist. Radiation optimization: All CT scans at this facility use at least one of these dose optimization techniques: automated exposure control; mA and/or kV adjustment per patient size (includes targeted exams where dose is matched to clinical indication); or iterative reconstruction. Contrast material: OMNIPAQUE 350; Contrast volume: 80 ml; Contrast route: INTRAVENOUS (IV); COMPARISON: CR XR CHEST 2V PA LATERAL 01/13/2022 7:53 AM FINDINGS: Pulmonary arteries: No acute pulmonary embolus. Aorta: Unremarkable. No aortic aneurysm. No aortic dissection. Lungs: The lungs are clear. Pleural spaces: Unremarkable. No pneumothorax. No pleural effusion. Heart: Heart is normal size. No pericardial effusion. Lymph nodes: No enlarged lymph nodes. Bones/joints: Bones have a normal appearance. No acute fracture or suspicious bone lesion. Soft tissues: Unremarkable. IMPRESSION: 1. No pulmonary embolus. 2. No acute pulmonary findings. Dictated and Authenticated by: Tyesha Julian MD. Orderin Denzel Roca MD
[2025-08-29 23:31] VITALS: BP 130/76; PULSE 94; O2SAT 93
[2025-08-29 23:54] LABS: Troponin I 15 ng/L (<54)
== END 2025-08-30 00:21 | disposition home or self-care (01) ==
PROVIDERS: Emergency Provider Student in an Organized Health Care Education/Training Program; PCP Internal Medicine
DX: R55 Syncope and collapse
CPT/HCPCS: 36415; 71275; 80053; 93005; 96361; 96374; 96375; 99285; 70450; 70486; 72125; 84443; 84484; 85025; 85610; 85730; 93010; 99284; J1200; J2919; J3490